=== PATIENT | female | born 1960 | race Caucasian/White ===

== ENCOUNTER → 2016-12-22 | Day surgery (SDC) | payer BC ==
[~2016-12-22] VITALS: Ht 157.5 cm; Wt 120.0 kg
[~2016-12-22] MED LIST: CEPH500C PO; DOXY100C41 PO; SODIUM CHLORIDE 0.9% 1000ML 500 ML IV SCH
[2016-12-22 13:03] VITALS: BP 144/93; PULSE 71; TEMP 36.7; O2SAT 96; Ht 157.5 cm; Wt 120.0 kg
[2016-12-22 14:05] VITALS: BP 147/92; PULSE 65; TEMP 36.7; O2SAT 97
== END | disposition home or self-care (01) ==
LOC: C.MTU 12:41
PROVIDERS: ATTEND Family Medicine
DX: E86.0 Dehydration (principal); K52.9 Noninfective gastroenteritis and colitis, unspecified

== ENCOUNTER 2017-02-13 11:27 | Emergency (ER) | payer BC ==
[~2017-02-13] VITALS: Ht 157.5 cm; Wt 97.8 kg
[2017-02-13 11:32] VITALS: Ht 157.5 cm; Wt 97.8 kg
[2017-02-13] MEDS ORDERED: DOXY100C41 PO (11:45)
[2017-02-13] MEDS ORDERED: CEFTRIAXONE SOD INJ 1 GM ADDVIAL IV STA (11:58)
[2017-02-13 12:30] LABS: BASO % 0.4 %; BASO ABS # 0.02 K/uL (0-0.2); COMPLETE YES; EOS % 2.1 %; HEMATOCRIT 41.6 % (37-47); IG% 0.2 %; LYMPH % 45.4 %; LYMPH ABS # 2.39 K/uL (1.2-3.4); MEAN CELL VOLUME 95.9 fL (80-100); MEAN CORPUSCULAR HEMOGLOBIN 30.6 pg (25-34); MEAN PLATELET VOLUME 10.9 fL (7.4-10.4); MONO % 8.7 %; NEUT % 43.2 %; PLATELET COUNT 231 K/uL (130-400); RED BLOOD COUNT 4.34 M/uL (4.2-5.4); WHITE BLOOD COUNT 5.26 K/uL (4.8-10.8)
[2017-02-13 12:47] LABS: BUN/CREATININE RATIO 16.4 (10-20); CALCIUM 8.7 mg/dl (8.5-10.1); CREATININE 0.58 mg/dl (0.60-1.20)
--- NOTE | 2017-02-13 13:56 | DIAGNOSTIC IMAGING REPORT ---
ULTRASOUND LEFT VENOUS DOPP LOWER EXT UNILAT CLINICAL HISTORY: Left leg swelling COMPARISON STUDY: No previous studies for comparison. FINDINGS: Real-time and color flow Doppler imaging were performed. Flow was seen within the femoral, popliteal and calf veins with no intraluminal thrombus demonstrated. The saphenous vein is patent. IMPRESSION: No evidence of left lower extremity DVT. Electronically signed by: Donny Mendez M.D. 02/13/2017 1:54 PM Dictated Date/Time: 02/13/2017 1:53 PM
--- NOTE | 2017-02-13 14:02 | DIAGNOSTIC IMAGING REPORT ---
LEFT FOOT MIN 3 VIEWS ROUTINE CLINICAL HISTORY: left toe infection COMPARISON: None. DISCUSSION: Mild generalized degenerative change. Soft tissue edema. No acute bony abnormality. Cortical margins are intact. Small heel spur. Mild soft tissue edema IMPRESSION: Mild soft tissue edema. Mild degenerative change. No acute bony abnormality. Heel spur. Electronically signed by: Tim Cespedes M.D. 02/13/2017 2:00 PM Dictated Date/Time: 02/13/2017 1:59 PM
[2017-02-13] MEDS ORDERED: CEPH500C PO (14:21)
--- NOTE | 2017-02-13 14:22 | EMERGENCY ROOM VISIT NOTE ---
History Report prepared by Rachelle: Pascual Guevara Under the Supervision of: Dr. Levy Sarmiento D.O. First contact with patient: 11:57 Chief Complaint: INFECTION Stated Complaint: INFECTION IN TOE AND LEG Nursing Triage Summary: Triage note: Pt reports she has an infection to her left second toe and left lower leg "i saw my dr yesterday and they started me on an antibiotic and it's getting worse." History of Present Illness The patient is a 56 year old female who presents to the Emergency Room with complaints of an infection in her left second toe that started 1 week ago. She rates her pain an 8/10 in severity. At this time, the patient was in [place] at [facility]. She got a blister on her foot at this time that popped as she was walking. She then began to experience toe pain that spread into her leg. She saw her PCP yesterday and they outlined the infection and gave her an antibiotic. They told her that if the infection moves out of the outline, she should go to the emergency room. She denies any leg trauma. She denies any past medical problems. Source of History: patient Onset: 1 week ago Position: toe(s) (second left) Symptom Intensity: 8/10 Quality: ache Timing: worsening Note: She has leg pain and redness. She denies any other abnormal symptoms. Review of Systems See HPI for pertinent positives & negatives. A total of 10 systems reviewed and were otherwise negative. Past Medical & Surgical Medical Problems: (1) No Known Active Medical Problems Family History Patient reports no known family medical history. Social History Smoking Status: Never Smoker Smokeless Tobacco Use: No Drug Use: none Occupation Status: employed Current/Historical Medications Scheduled Cephalexin Monohydrate (Keflex), 500 MG PO QID Doxycycline (Monohydrate) (Monodox), 1 CAP PO BID Allergies Coded Allergies: Penicillins (Verified Allergy, Unknown, 02/13/17) Sulfa Drugs (Verified Allergy, Unknown, 02/13/17) Sulfamethoxazole (Verified Allergy, Unknown, 02/13/17) Aspirin (Unverified Adverse Reaction, Unknown, GI UPSET, 02/13/17) Uncoded Allergies: POLLEN--SNEEZING; TAKES CLARITAN IN THE SPRING (Allergy, Unknown, 11/10/02) Physical Exam Vital Signs Date Time Temp Pulse Resp B/P Pulse Ox O2 Delivery O2 Flow Rate FiO2 5/19/17 14:39 36.8 55 18 155/100 98 02/13/17 13:19 63 18 155/106 95 02/13/17 11:32 36.8 67 18 208/131 98 Room Air Physical Exam CONSTITUTIONAL/VITAL SIGNS: Reviewed / noted above. GENERAL: Non-toxic in appearance. INTEGUMENTARY: Warm, dry, and [place]. HEAD: Normocephalic. EYES: without scleral icterus or trauma. ENT/OROPHARYNX: clear and moist. LYMPHADENOPATHY/NECK: Is supple without lymphadenopathy or meningismus. RESPIRATORY: Lungs clear and equal. CARDIOVASCULAR: Regular rate and rhythm. GI/ABDOMEN: Soft and nontender. No organomegaly or pulsatile mass. No rebound or guarding. Normal bowel sounds. EXTREMITIES: Warm and well perfused. Mild lower extremity edema of the left leg. Mild erythema to the anterior lower tibial region and posterior lower calf region on the left leg. Left second toe has skin that is cracked on the plantar surface at the MTP joint region. BACK: No CVA tenderness. NEUROLOGICAL: Intact without focal deficits. PSYCHIATRIC: normal affect. MUSCULOSKELETAL: Normally developed with good muscle tone. Medical Decision & Procedures ER Provider Diagnostic Interpretation: Radiology results as stated below per my review and radiologist interpretation: LEFT FOOT MIN 3 VIEWS ROUTINE CLINICAL HISTORY: left toe infection COMPARISON: None. DISCUSSION: Mild generalized degenerative change. Soft tissue edema. No acute bony abnormality. Cortical margins are intact. Small heel spur. Mild soft tissue edema IMPRESSION: Mild soft tissue edema. Mild degenerative change. No acute bony abnormality. Heel spur. Electronically signed by: Tim Cespedes M.D. 02/13/2017 2:00 PM Dictated Date/Time: 02/13/2017 1:59 PM ULTRASOUND LEFT VENOUS DOPP LOWER EXT UNILAT CLINICAL HISTORY: Left leg swelling COMPARISON STUDY: No previous studies for comparison. FINDINGS: Real-time and color flow Doppler imaging were performed. Flow was seen within the femoral, popliteal and calf veins with no intraluminal thrombus demonstrated. The saphenous vein is patent. IMPRESSION: No evidence of left lower extremity DVT. Electronically signed by: Donny Mendez M.D. 02/13/2017 1:54 PM Dictated Date/Time: 02/13/2017 1:53 PM Laboratory Results 02/13/17 12:12 Red Blood Count 4.34, Mean Corpuscular Volume 95.9, Mean Corpuscular Hemoglobin 30.6, Mean Corpuscular Hemoglobin Concent 32.0, Mean Platelet Volume 10.9, Neutrophils (%) (Auto) 43.2, Lymphocytes (%) (Auto) 45.4, Monocytes (%) (Auto) 8.7, Eosinophils (%) (Auto) 2.1, Basophils (%) (Auto) 0.4, Neutrophils # (Auto) 2.27, Lymphocytes # (Auto) 2.39, Monocytes # (Auto) 0.46, Eosinophils # (Auto) 0.11, Basophils # (Auto) 0.02 02/13/17 12:12 Test 02/13/17 12:12 White Blood Count 5.26 K/uL (4.8-10.8) Red Blood Count 4.34 M/uL (4.2-5.4) Hemoglobin 13.3 g/dL (12.0-16.0) Hematocrit 41.6 % (37-47) Mean Corpuscular Volume 95.9 fL (80-100) Mean Corpuscular Hemoglobin 30.6 pg (25-34) Mean Corpuscular Hemoglobin Concent 32.0 g/dl (32-36) Platelet Count 231 K/uL (130-400) Mean Platelet Volume 10.9 fL (7.4-10.4) Neutrophils (%) (Auto) 43.2 % Lymphocytes (%) (Auto) 45.4 % Monocytes (%) (Auto) 8.7 % Eosinophils (%) (Auto) 2.1 % Basophils (%) (Auto) 0.4 % Neutrophils # (Auto) 2.27 K/uL (1.4-6.5) Lymphocytes # (Auto) 2.39 K/uL (1.2-3.4) Monocytes # (Auto) 0.46 K/uL (0.11-0.59) Eosinophils # (Auto) 0.11 K/uL (0-0.5) Basophils # (Auto) 0.02 K/uL (0-0.2) RDW Standard Deviation 48.5 fL (36.4-46.3) RDW Coefficient of Variation 13.8 % (11.5-14.5) Immature Granulocyte % (Auto) 0.2 % Immature Granulocyte # (Auto) 0.01 K/uL (0.00-0.02) Anion Gap 5.0 mmol/L (3-11) Est Creatinine Clear Calc Drug Dose 118.3 ml/min Estimated GFR () 119.4 Estimated GFR (Non- 103.0 BUN/Creatinine Ratio 16.4 (10-20) Calcium Level 8.7 mg/dl (8.5-10.1) Laboratory results as stated above per my review. Medications Administered Medications (Trade) Dose Ordered Sig/Jennifer Route Start Time Stop Time Status Last Admin Dose Admin Ceftriaxone Sodium (Rocephin Inj) 1 gm NOW STAT IV 02/13/17 11:58 02/13/17 11:59 DC 02/13/17 12:42 1 GM ED Course 1157: Previous medical records were reviewed. The patient was evaluated in room C9. A complete history and physical examination was performed. 1158: Ordered Rocephin Inj 1 mg IV 1424: On reevaluation, the patient is resting. I discussed the results and findings with the patient. She verbalized agreement of the treatment plan. She was discharged home. Medical Decision Differential diagnosis: Etiologies such as cellulitis, abscess, MRSA infection, DVT, necrotizing fasciitis, dermatitis, drug eruption, as well as others were entertained. This is a 56-year-old female who presents to the ED with a chief complaint of a left lower extremities cellulitis. The patient developed a crack in the plantar aspect of her second left toe while she was at [employer] a week ago. The patient states that she has since developed redness and swelling in the left lower extremity. She went to her PCP and was diagnosed with a cellulitis yesterday and started on doxycycline. The patient reports increasing redness since being started on antibiotic yesterday. She came in for evaluation. The patient on exam has some erythema in the anterior as well as posterior aspect of the right leg. This is mostly in the inferior aspect of the tibial region. This also extends somewhat into the posterior aspect of the lower calf. There is some mild swelling as well as tenderness on exam. There is no discharge from the wound. CBC is normal, PRP is normal. Left lower extremity ultrasound did not show DVT. An x-ray of the foot did not show osteomyelitis or significant skin infection. The patient was told the results. She was treated with IV Rocephin. She'll be discharged on Keflex in addition to the doxycycline. She is felt to be stable for discharge and outpatient follow-up. She will return if symptoms worsen significantly in the next 24-48 hours. Impression Primary Impression: Cellulitis of left lower leg Scribe Attestation The scribe's documentation has been prepared under my direction and personally reviewed by me in its entirety. I confirm that the note above accurately reflects all work, treatment, procedures, and medical decision making performed by me. Departure Information Dispostion Home / Self-Care Prescriptions Cephalexin Monohydrate (Keflex) 500 Mg Cap 500 MG PO QID, #28 CAP Prov: Levy Sarmiento D.O. 02/13/17 Referrals No Doctor, Assigned (PCP) Forms HOME CARE DOCUMENTATION FORM, IMPORTANT VISIT INFORMATION, WORK / SCHOOL INSTRUCTIONS Patient Instructions Cellulitis Dc, My [facility] Additional Instructions Cephalexin as prescribed. Continue doxycycline. Follow-up with your doctor for recheck in 1-2 days. Return to the emergency department and 24-48 hours if symptoms worsen.
[2017-02-13 14:39] VITALS: BP 155/100; PULSE 55; TEMP 36.8; O2SAT 98
== END 2017-02-13 14:39 | disposition home or self-care (01) ==
LOC: C.EDB 11:28 → C.EDC 14:39
DX: L03.116 Cellulitis of left lower limb (principal)

== ENCOUNTER 2017-07-06 11:04 | Emergency (ER) | payer BC ==
[~2017-07-06] VITALS: Ht 160 cm; Wt 122.5 kg
[~2017-07-06 11:04] MED LIST changes: -SODIUM CHLORIDE 0.9% 1000ML 500 ML IV SCH
[2017-07-06 11:06] VITALS: TEMP 37.1; Ht 160 cm; Wt 122.5 kg
--- NOTE | 2017-07-06 12:04 | EMERGENCY ROOM VISIT NOTE ---
History Report prepared by Rachelle: Eliel Mercer Under the Supervision of: Dr. Varinder Seymour M.D. First contact with patient: 11:35 Chief Complaint: CHEST PAIN Stated Complaint: PAIN LEFT SIDE UNDER RIB CAGE History of Present Illness The patient is a 57 year old white female with a past medical history of kidney stones on the right side, appendectomy, and cellulitis who presents to the ED with a cc of waxing and waning discomfort under her left rib beginning 0200 this morning. Positive nausea. Negative urinary symptoms, cough, fevers, chills , recent falls or abnormal movements. She is not having any difficulty with urination or bowel movements. Denies any history of blood clots, though she has a family history of blood clots. She denies any alcohol, tobacco, or drug use. Source of History: patient Onset: 0200 Position: other (left ribs) Quality: other (discomfort) Timing: waxes/wanes Associated Symptoms: + nausea, No fevers, No chills, No cough, No urinary symptoms Review of Systems See HPI for pertinent positives and negatives. A total of ten systems were reviewed and were otherwise negative. Past Medical & Surgical Medical Problems: (1) No Known Active Medical Problems Family History Patient reports no known family medical history. Social History Smoking Status: Former Smoker Drug Use: none Occupation Status: employed Current/Historical Medications No Active Prescriptions or Reported Meds Allergies Coded Allergies: Penicillins (Verified Allergy, Unknown, 02/13/17) Sulfa Drugs (Verified Allergy, Unknown, 07/06/17) Sulfamethoxazole (Verified Allergy, Unknown, 07/06/17) Aspirin (Unverified Adverse Reaction, Unknown, GI UPSET, 07/06/17) Physical Exam Vital Signs Date Time Temp Pulse Resp B/P (MAP) Pulse Ox O2 Delivery O2 Flow Rate FiO2 07/06/17 14:57 68 18 140/90 98 Room Air 07/06/17 14:06 71 07/06/17 12:32 70 20 170/103 95 Room Air 07/06/17 12:30 96 Room Air 07/06/17 12:30 96 Room Air 07/06/17 11:22 77 07/06/17 11:06 37.1 91 20 192/119 97 Room Air Physical Exam GENERAL: Awake, alert, well-appearing, NAD HENT: Normocephalic, atraumatic. EYES: Normal conjunctiva. Sclera non-icteric. NECK: Supple. No nuchal rigidity. FROM. RESPIRATORY: CTAB, no rhonchi, wheezing, crackles CARDIAC: RRR, no MRG ABDOMEN: Soft, NTND, BS+ MSK: No chest wall TTP, no LE edema. No CVA TTP NEURO: GCS 15, CN 2-12 intact, moves all 4s on command SKIN: No vesicles, blisters, rash noted on the left flank or chest. No erythema or calor. No jaundice noted. Medical Decision & Procedures ER Provider Diagnostic Interpretation: Radiology results as stated below per my review and radiologist interpretation: SINGLE VIEW CHEST CLINICAL HISTORY: Atypical chest pain. FINDINGS: An AP, portable, upright chest radiograph is compared to study dated 12/18/2010. The examination is degraded by portable technique, large body habitus, and apical lordotic positioning. The heart is top normal for projection. The mediastinal contour is within normal limits. The pulmonary vasculature is noncongested. The lungs and pleural spaces are clear. No pneumothorax is seen. The skeletal structures are osteopenic. Degenerative change is seen throughout the thoracic spine. IMPRESSION: No acute cardiopulmonary abnormality. Electronically signed by: Teodoro Klein M.D. 07/06/2017 12:24 PM Dictated Date/Time: 07/06/2017 12:24 PM Laboratory Results 07/06/17 11:25 Red Blood Count 4.38, Mean Corpuscular Volume 94.1, Mean Corpuscular Hemoglobin 31.1, Mean Corpuscular Hemoglobin Concent 33.0, Mean Platelet Volume 12.0, Neutrophils (%) (Auto) 59.4, Lymphocytes (%) (Auto) 30.1, Monocytes (%) (Auto) 8.0, Eosinophils (%) (Auto) 2.1, Basophils (%) (Auto) 0.3, Neutrophils # (Auto) 4.15, Lymphocytes # (Auto) 2.11, Monocytes # (Auto) 0.56, Eosinophils # (Auto) 0.15, Basophils # (Auto) 0.02 07/06/17 11:25 Test 07/06/17 11:25 07/06/17 13:57 White Blood Count 7.00 K/uL (4.8-10.8) Red Blood Count 4.38 M/uL (4.2-5.4) Hemoglobin 13.6 g/dL (12.0-16.0) Hematocrit 41.2 % (37-47) Mean Corpuscular Volume 94.1 fL (80-100) Mean Corpuscular Hemoglobin 31.1 pg (25-34) Mean Corpuscular Hemoglobin Concent 33.0 g/dl (32-36) Platelet Count 263 K/uL (130-400) Mean Platelet Volume 12.0 fL (7.4-10.4) Neutrophils (%) (Auto) 59.4 % Lymphocytes (%) (Auto) 30.1 % Monocytes (%) (Auto) 8.0 % Eosinophils (%) (Auto) 2.1 % Basophils (%) (Auto) 0.3 % Neutrophils # (Auto) 4.15 K/uL (1.4-6.5) Lymphocytes # (Auto) 2.11 K/uL (1.2-3.4) Monocytes # (Auto) 0.56 K/uL (0.11-0.59) Eosinophils # (Auto) 0.15 K/uL (0-0.5) Basophils # (Auto) 0.02 K/uL (0-0.2) RDW Standard Deviation 44.7 fL (36.4-46.3) RDW Coefficient of Variation 12.9 % (11.5-14.5) Immature Granulocyte % (Auto) 0.1 % Immature Granulocyte # (Auto) 0.01 K/uL (0.00-0.02) Prothrombin Time 10.8 SECONDS (9.0-12.0) Prothromb Time International Ratio 1.0 (0.9-1.1) Activated Partial Thromboplast Time 26.8 SECONDS (21.0-31.0) Partial Thromboplastin Ratio 1.0 Anion Gap 8.0 mmol/L (3-11) Est Creatinine Clear Calc Drug Dose 106.5 ml/min Estimated GFR () 104.2 Estimated GFR (Non- 89.9 BUN/Creatinine Ratio 12.9 (10-20) Calcium Level 8.7 mg/dl (8.5-10.1) Total Bilirubin 0.5 mg/dl (0.2-1) Direct Bilirubin < 0.1 mg/dl (0-0.2) Aspartate Amino Transf (AST/SGOT) 19 U/L (15-37) Alanine Aminotransferase (ALT/SGPT) 33 U/L (12-78) Alkaline Phosphatase 72 U/L (45-117) Troponin I < 0.015 ng/ml (0-0.045) Total Protein 7.5 gm/dl (6.4-8.2) Albumin 3.8 gm/dl (3.4-5.0) Lipase 166 U/L (73-393) Urine Color YELLOW Urine Appearance CLEAR (CLEAR) Urine pH 7.0 (4.5-7.5) Urine Specific [place] 1.015 (1.000-1.030) Urine Protein NEG (NEG) Urine Glucose (UA) NEG (NEG) Urine Ketones NEG (NEG) Urine Occult Blood NEG (NEG) Urine Nitrite NEG (NEG) Urine Bilirubin NEG (NEG) Urine Urobilinogen NEG (NEG) Urine Leukocyte Esterase SMALL (NEG) Urine WBC (Auto) 1-5 /hpf (0-5) Urine RBC (Auto) 0-4 /hpf (0-4) Urine Hyaline Casts (Auto) 0 /lpf (0-5) Urine Epithelial Cells (Auto) >30 /lpf (0-5) Urine Bacteria (Auto) NEG (NEG) Laboratory results reviewed by me Medications Administered Medications (Trade) Dose Ordered Sig/Jennifer Route Start Time Stop Time Status Last Admin Dose Admin Ondansetron HCl (Zofran Inj) 4 mg NOW STAT IV 07/06/17 12:09 07/06/17 12:11 DC 07/06/17 12:25 4 MG Sodium Chloride 1,000 ml @ 999 mls/hr Q1H1M STAT IV 07/06/17 12:09 07/06/17 13:09 DC 07/06/17 12:27 999 MLS/HR Ketorolac Tromethamine (Toradol Inj) 30 mg NOW STAT IV 07/06/17 12:09 07/06/17 12:11 DC 07/06/17 12:25 30 MG Acetaminophen (Tylenol Tab) 1,000 mg NOW STAT PO 07/06/17 12:09 07/06/17 12:11 DC 07/06/17 12:27 1,000 MG ECG Indication: chest pain Rate (beats per minute): 96 Rhythm: normal sinus Findings: other (Normal interval. No STS changes or TWI) ED Course 1135: The patient was evaluated in room C5. A complete history and physical exam was performed. 1401: I reevaluated the patient. Discussed results and discharge instructions: She verbalized understanding and agreement. The patient is ready for discharge. Medical Decision The patient is a 57 year old white female with a past medical history of kidney stones on the right side, appendectomy, and cellulitis who presents to the ED with a cc of waxing and waning discomfort under her left rib beginning 0200 this morning. Positive nausea. Negative urinary symptoms, cough, fevers, chills , recent falls or abnormal movements. She is not having any difficulty with urination or bowel movements. Denies any history of blood clots, though she has a family history of blood clots. She denies any alcohol, tobacco, or drug use. Triage Nursing notes reviewed. The patient's presentation and history were concerning for etiologies such as cardiac ischemia, aortic dissection, pulmonary embolism, pneumonia, pneumothorax , musculoskeletal, infections, pericarditis, myocarditis, esophageal rupture, gastrointestinal, as well as others were entertained. Patient was seen and evaluated at the bedside. Patient well-appearing all did complain of some subcostal rib pain on the left side. Patient did have history of prior kidney stones however this is only diagnosed on the right side. Patient did have blood work that was completed. White blood cell count normal. Patient's other blood counts fairly unremarkable. Patient had a fairly normal EKG and negative troponin. Less likely ACS. HEART score < 4 Patient chest x-ray clear less likely fracture or pneumonia. Patient did have a UA which didn't show any blood thus less likely kidney stone type pain. Patient was informed of all findings told to follow-up with her PCP if she has a mildly elevated blood pressure. Patient was given strict follow-up, discharge, and return precautions. Patient agreed with plan of care was safely discharged home. Medication Reconcilliation Current Medication List: was personally reviewed by me Blood Pressure Screening Patient's blood pressure: Elevated blood pressure Blood pressure disposition: Elevated BP felt to be situational Impression Primary Impression: Flank pain Scribe Attestation The scribe's documentation has been prepared under my direction and personally reviewed by me in its entirety. I confirm that the note above accurately reflects all work, treatment, procedures, and medical decision making performed by me. Departure Information Dispostion Home / Self-Care Prescriptions No Active Prescriptions or Reported Meds Referrals Consuelo Palacio M.D. (PCP) Patient Instructions ED Flank Pain Uncertain Cause, My [facility] Additional Instructions Please return to the emergency department if you have worsening or recurrent symptoms not amenable to at-home treatment. Please call for a follow-up appointment with her primary care physician. Please take your medications as prescribed. If you have other concerns and/or complaints please feel free to also call your primary care physician's office or return the ED for further evaluation, management, and treatment. You were found to have an elevated blood pressure today (>120 sytolic or >90 diastolic). Per medicare guidelines, you need to follow up with this blood pressure screening with your Primary Care Physician (PCP). For a new PCP call [phone]. You may take 600 mg Ibuprofen every 6 hours as needed for pain with food for no more than 2 consecutive days. You may take tylenol 1000mg every 6 hours as needed for pain. You may take motrin and tylenol separately or at the same time. You have been examined and treated today on an emergency basis only. This is not a substitute for, or an effort to provide, complete comprehensive medical care. It is impossible to recognize and treat all injuries or illnesses in a single emergency department visit. It is therefore important that you follow up closely with [facility]. Call as soon as possible for an appointment. Thank you for your time and consideration. I look forward to speaking with you again soon. Please don't hesitate to call us if you have any questions.
[2017-07-06] MEDS ORDERED: ONDANSETRON INJ 2 MG/ML 2 ML VIAL IV STA (12:09)
[2017-07-06] MEDS ORDERED: ACETAMINOPHEN 500 MG TAB PO STA (12:09)
[2017-07-06] MEDS ORDERED: KETOROLAC TROMETHAMINE 30 MG/ML VIAL IV STA (12:09)
[2017-07-06] MEDS ORDERED: SODIUM CHLORIDE 0.9% 1000ML 1,000 ML IV STA (12:09)
--- NOTE | 2017-07-06 12:26 | DIAGNOSTIC IMAGING REPORT ---
SINGLE VIEW CHEST CLINICAL HISTORY: Atypical chest pain. FINDINGS: An AP, portable, upright chest radiograph is compared to study dated 12/18/2010. The examination is degraded by portable technique, large body habitus, and apical lordotic positioning. The heart is top normal for projection. The mediastinal contour is within normal limits. The pulmonary vasculature is noncongested. The lungs and pleural spaces are clear. No pneumothorax is seen. The skeletal structures are osteopenic. Degenerative change is seen throughout the thoracic spine. IMPRESSION: No acute cardiopulmonary abnormality. Electronically signed by: Teoodro Klein M.D. 07/06/2017 12:24 PM Dictated Date/Time: 07/06/2017 12:24 PM
[2017-07-06 12:30] VITALS: O2SAT 96
[2017-07-06 12:42] LABS: BASO % 0.3 %; BASO ABS # 0.02 K/uL (0-0.2); COMPLETE YES; EOS % 2.1 %; HEMATOCRIT 41.2 % (37-47); IG% 0.1 %; LYMPH % 30.1 %; LYMPH ABS # 2.11 K/uL (1.2-3.4); MEAN CELL VOLUME 94.1 fL (80-100); MEAN CORPUSCULAR HEMOGLOBIN 31.1 pg (25-34); NEUT % 59.4 %; PLATELET COUNT 263 K/uL (130-400); RED BLOOD COUNT 4.38 M/uL (4.2-5.4)
[2017-07-06 12:49] LABS: PROTHROMBIN TIME (PATIENT) 10.8 SECONDS (9.0-12.0)
[2017-07-06 13:14] LABS: ALKALINE PHOSPHATASE 72 U/L (45-117); ALT/SGPT 33 U/L (12-78); AST/SGOT 19 U/L (15-37); BLOOD UREA NITROGEN 10 mg/dl (7-18); BUN/CREATININE RATIO 12.9 (10-20); CALCIUM 8.7 mg/dl (8.5-10.1); CARBON DIOXIDE 26 mmol/L (21-32); CHLORIDE 105 mmol/L (98-107); CREATININE 0.74 mg/dl (0.60-1.20); GLUCOSE 118 mg/dl (70-99); POTASSIUM 3.8 mmol/L (3.5-5.1); SODIUM 139 mmol/L (136-145)
[2017-07-06 14:03] LABS: URINE APPEARANCE CLEAR (CLEAR); URINE BILIRUBIN NEG (NEG); URINE COLOR YELLOW; URINE EPITHELIAL CELL AUTO >30 /lpf (0-5); URINE NITRITE NEG (NEG); URINE SPECIFIC GRAVITY 1.015 (1.000-1.030); UROBILINOGEN NEG (NEG); ZZUR CULT IF INDIC CLEAN CATCH NO
[2017-07-06 14:05] LABS: MANUAL MICROSCOPIC REQUIRED? NO; REVIEW REQ? NO
[2017-07-06 14:57] VITALS: BP 140/90; PULSE 68; O2SAT 98
== END 2017-07-06 15:23 | disposition home or self-care (01) ==
LOC: C.EDB 11:06 → C.EDC 15:23
DX: R10.30 Lower abdominal pain, unspecified (principal); Z87.442 Personal history of urinary calculi; Z87.891 Personal history of nicotine dependence

== ENCOUNTER → 2018-04-23 | Outpatient (CLI) | payer OTHER ==
--- NOTE | 2018-04-23 15:16 | DIAGNOSTIC IMAGING REPORT ---
R TOE(S) MIN 2 VIEWS HISTORY: 57 years-old Female M79.676 acute pain and swelling of the right second toe COMPARISON: None available TECHNIQUE: 3 views of the right second toe FINDINGS: There is an acute comminuted fracture of the distal phalangeal tuft second digit with additional subtle acute fracture involving the medial base of the second distal phalanx. Minimal distal displacement of the distal phalangeal tuft fracture measures up to 3 mm. Moderate soft tissue swelling. Mild degenerative changes about the interphalangeal and metatarsal phalangeal joints. IMPRESSION: Acute comminuted and mildly displaced second distal phalangeal tuft fracture with soft tissue swelling. The above report was generated using voice recognition software. It may contain grammatical, syntax or spelling errors. Electronically signed by: Jon Gayle M.D. 04/23/2018 3:15 PM Dictated Date/Time: 04/23/2018 3:13 PM
== END | disposition home or self-care (01) ==
LOC: C.RAD1850 14:53
DX: S92.531A Displaced fracture of distal phalanx of right lesser toe(s), initial encounter for closed fracture (principal); X58.XXXA Exposure to other specified factors, initial encounter

== ENCOUNTER 2022-05-28 16:34 | Inpatient (IN) ==
--- NOTE | 2022-05-28 17:04 | ED Triage Note ---
Date of Service May 28, 2022 History of Present Illness This patient was briefly evaluated while in triage. An abbreviated physical exam was performed. This patient is a 61-year-old Female that presents to ED today with abd pain. She is concerned about gallbladder. RUQ abd and epigastric abd pain noted. Cold sweats noted. This started thursday. Decreased appetite. Physical Exam GENERAL: 61 year old female. In no acute distress. SKIN: No lesions or rashes. HEART: Regular rate and rhythm. LUNGS: Clear to auscultation. ABDOMEN: Bowel sounds normoactive. No guarding or rigidity. No tenderness of palpation. NEURO: Alert and oriented. No deficits. MUSCULOSKELETAL: No deformities to inspection of the extremities. PSYCH: Patient is pleasant and answers all questions appropriately. Initial orders for labs and / or imaging were placed and patient was placed in the waiting area until a bed is available. Please see further documentation for the full ED course.
[2022-05-28] MEDS ORDERED: SODIUM CHLORIDE 0.9% 1000ML 1,000 ML IV ONE (17:21)
[2022-05-28] MEDS ORDERED: ONDANSETRON INJ 2 MG/ML 2 ML VIAL IV STA ×2 (17:21→19:23)
[2022-05-28] MEDS ORDERED: MoRPHine SULFATE 4 MG/ML 1 ML CARP\\VIAL IV STA (17:21)
--- NOTE | 2022-05-28 17:33 | Emergency Department Note ---
Impression & Plan Right upper quadrant abdominal pain, Hypertensive urgency, Hypomagnesemia ED Provider Note NAME: CARMEN ALMONTE AGE: 61 SEX: F : 1960 ARRIVES VIA: Walk-In INFORMANT: Patient, ED PROVIDER(S): Connor Hernández DO CHIEF COMPLAINT: Abdominal pain HPI: The patient is a 61-year-old female who presented to the emergency departm ent for an evaluation of abdominal pain. The patient describes right upper quadrant abdominal pain which began over the weekend. She started noticing pain that became worse over the last 24 hours. She is not been seen by her family doctor for these symptoms. She denies having any vomiting but does note nausea. She states the pain does also appear in her epigastric region and she notices shortness of breath when the pain is very bad. She has had no lower extremity swelling or pain. She denies having any black or bloody bowels. She states the pain is moderate to severe and worsens with ambulation as well as palpation over the right upper quadrant. The patient thinks that this could be her gallbladder. She had a similar episode previously but at that time did not have her gallbladder removed. ROS: See above HPI for pertinent positives & negatives. A total of 10 systems reviewed and were otherwise negative. PAST MEDICAL HISTORY: See Below PAST SURGICAL HISTORY: See Below FAMILY HISTORY: See Below SOCIAL HISTORY: See Below HOME MEDICATIONS: See Below ALLERGIES: See Below VITALS: See Below PHYSICAL EXAMINATION: GENERAL: The patient is awake and alert. She is very anxious appearing and appears to be uncomfortable. EYES: The conjunctivae are clear. The pupils are round and reactive. EARS, NOSE, MOUTH AND THROAT: The nose is without any evidence of any deformity. NECK: The neck is nontender and supple. RESPIRATORY: Normal respiratory effort is noted there is no evidence of wheezing rhonchi or rales CARDIOVASCULAR: Regular rate and rhythm noted there no murmurs rubs or gallops normal S1 normal S2. GASTROINTESTINAL: The abdomen is distended and diffusely tender. There is right upper quadrant tenderness to palpation but no guarding rigidity. MUSCULOSKELETAL/EXTREMITIES: There is no evidence of gross deformity full range of motion is noted in the hips and shoulders. SKIN: There is no obvious evidence of any rash. There are no petechiae, pallor or cyanosis noted. NEUROLOGIC: Patient is awake alert and oriented x3. Gait was steady. MEDICAL DECISION MAKING: The patient is a 61-year-old female who presented to the emergency department for an evaluation of right upper quadrant abdominal pain and right-sided chest pain. The patient thought she may have had a problem with her gallbladder. She was found to have a very elevated blood pressure in the emergency department. She was treated with pain medication in the emergency department. She was also treated with antihypertensive medication because of the degree of her hypertension. I discussed patient's laboratory and radiographic studies with her. Her radiographic studies do not appear to be completely consistent with cholecystitis or other pathologies were considered including pulmonary embolism and cardiac disease. Ultimately the patient was evaluated by general surgery. In conjunction with her physical exam and her radiographic studies it is possible this could be cholecystitis. She was also evaluated by the hospitalist group. She was felt to be a good candidate for inpatient management and further work-up. The patient was agreeable with this plan. Triage Nursing notes reviewed. Prior medical records reviewed Vital Signs: reviewed and remarkable for elevated blood pressure. Differential diagnosis: Etiologies such as appendicitis, diverticulitis, obstruction, inflammatory bowel disease, renal colic, PUD, biliary pathology, pancreatitis, mesenteric ischemia, aortic pathology, infections, genitourinary, UTI, perforated viscus, as well as others were entertained. ER treatment provided: See below Diagnostics interpreted by me: ECG: EKG was obtained in the emergency department. My interpretation is sinus bradycardia 58 bpm. There is no ectopy. There is no acute ST segment abnormal ities noted. This was compared to a tracing from July 06, 2017. No changes were noted Cardiac Monitoring: An order was placed for continuous cardiac monitoring. The monitor shows a rate of 56 bpm with sinus bradycardia. Laboratory studies: As stated above and show below. Imaging studies: See below Consultation(s): I discussed this case with Steven who is on-call for general surgery. I discussed this case with Dr. Rodríguez. Past Med/Surg History Social History Smoking Status: Former smoker Smoking End Date: 1998; Hx Alcohol Use: Yes Alcohol type: wine Hx Substance Use: No Preferred Language: Bhutanese Communication Ability: Effective [place] Winder Required: No Beliefs That Will Affect Care: None Current Living Situation: Spouse Other Information That Helps Us Care for You: No Feels Safe at Home: Yes Safety Concerns: Feels Safe At This Time Assistive Devices: Glasses Allergies Allergies Allergy/AdvReac Type Severity Reaction Status Date / Time Penicillins Allergy Unknown Verified 02/13/17 11:42 Sulfa (Sulfonamide Allergy Unknown Verified 07/06/17 13:11 Antibiotics) sulfamethoxazole Allergy Unknown Verified 07/06/17 13:11 aspirin AdvReac Unknown GI UPSET Unverified 07/06/17 13:11 Home Meds Home Medications Medication Instructions Recorded Confirmed No Known Home Medications 05/28/22 05/28/22 Results & Data (ED) Vital Signs Vital Signs - 24 hr 05/28/22 17:01 05/28/22 19:15 05/28/22 19:14 Temperature 36.6 C Temperature Source Temporal Artery Scan Pulse Rate 81 80 Pulse Rate [Apical] 62 Pulse Rate from SpO2 Sensor Respiratory Rate 16 16 16 Respiratory Effort / Characteristics Non-Labored Spontaneous Non-Labored Spontaneous Respiratory Depth Normal Normal Respiratory Pattern Regular Blood Pressure 229/123 H Blood Pressure [Right Arm] 239/133 H Blood Pressure Mean 158 Blood Pressure Mean [Right Arm] 168 Blood Pressure Position Sitting Pulse Oximetry 97 98 99 Oxygen Delivery Method Room Air Room Air Room Air Sepsis Recent Fever Within 48 Hours No Sepsis New/Unexplained Change in Mental Status No Sepsis Action Taken by Nursing No Action Required 05/28/22 20:08 05/28/22 20:30 05/28/22 21:25 Temperature Temperature Source Pulse Rate 66 Pulse Rate [Apical] 60 73 Pulse Rate from SpO2 Sensor 67 Respiratory Rate 20 16 18 Respiratory Effort / Characteristics Non-Labored Spontaneous Respiratory Depth Respiratory Pattern Blood Pressure 181/108 H Blood Pressure [Right Arm] 182/103 H 188/111 H Blood Pressure Mean 132 Blood Pressure Mean [Right Arm] 129 136 Blood Pressure Position Pulse Oximetry 94 97 97 Oxygen Delivery Method Room Air Room Air Room Air Sepsis Recent Fever Within 48 Hours Sepsis New/Unexplained Change in Mental Status Sepsis Action Taken by Nursing 05/28/22 21:47 Temperature Temperature Source Pulse Rate 59 L Pulse Rate [Apical] Pulse Rate from SpO2 Sensor 60 Respiratory Rate 18 Respiratory Effort / Characteristics Respiratory Depth Respiratory Pattern Blood Pressure 174/96 H Blood Pressure [Right Arm] Blood Pressure Mean 122 Blood Pressure Mean [Right Arm] Blood Pressure Position Pulse Oximetry 96 Oxygen Delivery Method Room Air Sepsis Recent Fever Within 48 Hours Sepsis New/Unexplained Change in Mental Status Sepsis Action Taken by [facility] Medications Current Medication List: was personally reviewed by me Laboratory Data Attestation: I reviewed the patient's lab results. Result diagrams: 05/28/22 17:21 05/29/22 06:56 Lab Results 05/28/22 05/28/22 05/28/22 Range/Units 17:21 17:21 20:35 WBC 7.33 (4.8-10.8) K/ul RBC 3.88 L (3.93-5.22) M/uL Hgb 11.9 L (12.0-16.0) g/dl Hct 37.6 (34.1-44.9) % MCV 96.9 (80.0-100.0) fL MCH 30.7 (25.0-34.0) pg MCHC 31.6 L (32.0-36.0) g/dL RDW Std Deviation 45.6 (36.4-46.3) fL RDW Coeff of Lana 12.9 (11.5-14.5) % Plt Count 246 (130-400) K/uL MPV 11.8 (9.4-12.3) fL Immature Gran % (Auto) 0.3 % Neut % (Auto) 59.8 % Lymph % (Auto) 28.2 % Boyd % (Auto) 8.3 % Eos % (Auto) 2.9 % Baso % (Auto) 0.5 % Neut # (Auto) 4.38 (1.4-6.5) K/uL Lymph # (Auto) 2.07 (1.2-3.4) K/uL Boyd # (Auto) 0.61 (0.24-0.82) K/uL Eos # (Auto) 0.21 (0-0.50) K/uL Baso # (Auto) 0.04 (0-0.2) K/uL Immature Gran # (Auto) 0.02 (0.00-0.02) K/uL Sodium 141 (136-145) mmol/L Potassium 3.4 L (3.5-5.1) mmol/L Chloride 107 (98-107) mmol/L Carbon Dioxide 28 (21-32) mmol/L Anion Gap 6 (3-11) BUN 12 (6-23) mg/dl Creatinine 0.67 (0.6-1.2) mg/dl Est Cr Clr Drug Dosing 112.9 ml/min Est GFR ( Amer) 110.0 ml/min Est GFR (Non-Af Amer) 94.9 ml/min BUN/Creatinine Ratio 17.9 (10-20) Glucose 79 (70-99(Fasting)) mg/dl Calcium 9.3 (8.5-10.1) mg/dl Magnesium 1.6 L (1.7-2.4) mg/dl Total Bilirubin 0.2 (0.2-1.0) mg/dl AST 14 (13-39) U/L ALT 20 (7-52) U/L Alkaline Phosphatase 64 (34-104) U/L Troponin I High Sens 10.7 (0-14) pg/ml Total Protein 6.9 (6.0-8.3) gm/dl Albumin 4.0 (3.4-5.0) gm/dl Globulin 2.9 (2.5-4.0) gm/dl Albumin/Globulin Ratio 1.4 (0.9-2) Lipase 49 (11-82) U/L SARS-CoV-2, RNA, NAAT NEGATIVE (NEGATIVE) Administered Medications Sodium Chloride (Nss 1000ml) 1,000 mls @ 164 mls/hr IV .Q6H6M CLAU Stop: 06/28/22 01:03 Last Admin: 05/29/22 07:45 Dose: 164 mls/hr Documented By: Infusion: 05/29/22 07:45 Dose: 164 mls/hr Documented By: Admin: 05/29/22 02:11 Dose: 164 mls/hr Documented By: [id number] Acetaminophen (Ofirmev) 1,000 mg in 100 mls @ 400 mls/hr IV Q8H PRN PRN Reason: Pain Stop: 06/01/22 09:03 Last Admin: 05/29/22 10:05 Dose: 400 mls/hr Documented By: ROEL Morphine Sulfate (Morphine Sulfate 2 Mg/Ml Carp) 2 mg IV Q3H PRN PRN Reason: Pain (1,2,3,4,5) & Pre PT Stop: 06/11/22 21:52 Last Admin: 05/29/22 02:18 Dose: 2 mg Documented By: QG Potassium Chloride (Potassium Chloride Crtab 20 Meq Tabcr) 40 meq PO QAM CLAU Stop: 06/28/22 08:59 Last Admin: 05/29/22 08:59 Dose: 40 meq Documented By: ROEL Discontinued Medications Hydromorphone HCl (Hydromorphone Inj 1 Mg/Ml Syringe) 1 mg IV NOW STA Stop: 05/28/22 19:16 Last Admin: 05/28/22 19:20 Dose: 1 mg Documented By: COLIN Sodium Chloride (Nss 1000ml) 1,000 mls @ 999 mls/hr IV .Q1H1M ONE Stop: 05/28/22 18:21 Last Infusion: 05/28/22 19:11 Dose: 0 mls/hr Documented By: Admin: 05/28/22 17:34 Dose: 999 mls/hr Documented By: SOPHIA Magnesium Sulfate/Dextrose (Magnesium Sulfate / D5w) 1 gm in 100 mls @ 100 mls/hr IV Q1H CLAU Stop: 05/28/22 21:40 Last Infusion: 05/28/22 21:47 Dose: 0 mls/hr Documented By: Admin: 05/28/22 20:53 Dose: 100 mls/hr Documented By: Infusion: 05/28/22 20:53 Dose: 100 mls/hr Documented By: Admin: 05/28/22 20:02 Dose: 100 mls/hr Documented By: COLIN Ceftriaxone Sodium (Rocephin) 2,000 mg in 70 mls @ 140 mls/hr IV NOW STA Stop: 05/28/22 22:29 Last Infusion: 05/28/22 23:30 Dose: 0 mls/hr Documented By: Admin: 05/28/22 22:56 Dose: 140 mls/hr Documented By: COLIN Famotidine (Pepcid 20mg Iv Push) 20 mg in 5 mls @ 2.5 mls/min IV NOW STA Stop: 05/28/22 22:29 Last Admin: 05/28/22 22:56 Dose: 2.5 mls/min Documented By: COLIN Ioversol (Optiray 300 500ml) 110 ml IV ONCE ONE Stop: 05/28/22 19:00 Last Admin: 05/28/22 18:59 Dose: 110 ml Documented By: IMER Labetalol HCl (Labetalol Hcl Iv 5 Mg/Ml 20ml) 10 mg IV NOW STA Stop: 05/28/22 19:36 Last Admin: 05/28/22 20:01 Dose: 10 mg Documented By: COLIN Co-signed By: LEWIS Morphine Sulfate (Morphine Sulfate 4 Mg/Ml 1 Ml Carp\Vial) 4 mg IV NOW STA Stop: 05/28/22 17:22 Last Admin: 05/28/22 17:34 Dose: Not Given Documented By: SOPHIA Ondansetron HCl (Ondansetron Inj 2 Mg/Ml 2 Ml Vial) 4 mg IV NOW STA Stop: 05/28/22 17:22 Last Admin: 05/28/22 17:34 Dose: 4 mg Documented By: SOPHIA Ondansetron HCl (Ondansetron Inj 2 Mg/Ml 2 Ml Vial) 4 mg IV NOW STA Stop: 05/28/22 19:24 Last Admin: 05/28/22 19:25 Dose: 4 mg Documented By: COLIN Imaging Data Radiologist's Impression: Gallbladder Ultrasound 05/28/22 17:04 US gallbladder CLINICAL HISTORY: Epigastric abdominal pain. COMPARISON STUDY: No previous studies for comparison. FINDINGS: This exam is compromised by suboptimal penetration. Hepatic echogenicity is increased. No hepatic lesions are identified. There is no biliary ductal dilatation. No gallstones are identified. No definite gallbladder wall thickening. Gallbladder is partially obscured. Pancreatic body is normal. Head and tail are partially obscured. There is no right hydronephrosis. IMPRESSION: 1. Hepatic steatosis. 2. Exam compromised by suboptimal penetration. Partially obscured gallbladder but no definite gallstones. No convincing evidence for acute cholecystitis. 3. No biliary ductal dilatation. ACT 112: Negative or not required by law. Electronically signed by: Nino Mcneil M.D. 05/28/2022 6:20 PM Chest X-Ray 05/28/22 17:05 XR chest 1V portable CLINICAL HISTORY: Epigastric abd pain COMPARISON STUDY: Chest radiograph and right rib series October 19, 2018. FINDINGS: Lung volumes are normal. Lungs are clear. There is no pneumothorax or pleural effusion. There is mild enlargement of the cardiac silhouette. Mediastinal contours are normal. There is no evidence for pulmonary edema. IMPRESSION: No acute cardiopulmonary findings. ACT 112: Negative or not required by law. Electronically signed by: Nino Mcneil M.D. 05/28/2022 6:55 PM Abdomen/Pelvis CT 05/28/22 18:32 CT OF THE ABDOMEN AND PELVIS WITH CONTRAST CLINICAL HISTORY: Right-sided abdominal pain. COMPARISON STUDY: Right upper quadrant ultrasound performed earlier today. TECHNIQUE: Following IV administration of 110 mL of Optiray, axial images of the abdomen and pelvis were obtained from the lung bases to the proximal femurs. Images were reviewed in the axial, sagittal, and coronal planes. IV contrast was administered without complication. Automated exposure control was utilized for the study. A dose lowering technique was utilized adhering to the principles of ALARA. CT DOSE: 2552.76 mGy.cm FINDINGS: No pneumatosis, free air or portal venous gas is present. Several subcentimeter hypodense hepatic lesions are too small to characterize but likely reflect cysts. The spleen, adrenal glands, kidneys and pancreas are unremarkable . There is no biliary or pancreatic ductal dilatation. There is no hydronephrosis. There may be trace stranding adjacent to the gallbladder. Gallbladder mucosal enhancement appears slightly increased. However, the gallbladder is not distended. Caliber and wall thickness of small and large bowel are normal. There is no evidence for a bowel obstruction. Mild sigmoid diverticulosis is noted without evidence for acute diverticulitis. There is no ascites or lymphadenopathy. No acute fracture or suspicious lesion within the visualized skeletal structures is present. Bladder is mildly distended. Susp ected 1.9 cm uterine fibroid. IMPRESSION: 1. No definite acute process within the abdomen or pelvis. 2. Possible subtle stranding adjacent to the gallbladder with mild mucosal enhancement. However, gallbladder not distended and no gallstones identified on ultrasound. Acute cholecystitis is considered unlikely. However, if persistent right upper quadrant pain, a hepatobiliary scan could be considered although evaluation may be difficult given the small size of the gallbladder. 3. No bowel obstruction. No bowel wall thickening. ACT 112: Negative or not required by law. Electronically signed by: Nino Mcneil M.D. 05/28/2022 7:47 PM Chest CTA 05/28/22 18:32 CT ANGIOGRAPHY OF THE CHEST, PULMONARY EMBOLUS PROTOCOL CLINICAL HISTORY: Right-sided chest pain. Right upper quadrant pain. Evaluate for pulmonary embolus. COMPARISON STUDY: Chest radiograph October 19, 2018 and May 28, 2022. TECHNIQUE: Following IV administration of 110 mL of Optiray, helical axial images of the chest were obtained utilizing the pulmonary embolus protocol. Maximal intensity projections and sagittal and coronal reformats were viewed on an independent 3D workstation. IV contrast was administered without complication. Automated exposure control was utilized for the study. A dose lowering technique was utilized adhering to the principles of ALARA. FINDINGS: No pulmonary emboli are identified. There is no thoracic aortic dissection. There is mild dilatation of the ascending aorta, measuring 4.2 cm at the level of the main pulmonary artery. Mild cardiomegaly is noted. There is no pericardial effusion. Mildly enlarged right paratracheal lymph node on axial image 234 of 268 measures 1.1 cm in short axis diameter. There is no consolidat ion to suggest pneumonia. Mild subpleural opacities favor atelectasis. No pneumothorax or pleural effusion is present. Abdomen and pelvis CT will be reported separately. IMPRESSION: 1. No pulmonary emboli identified. 2. No acute intrathoracic findings. 3. Mildly enlarged right paratracheal lymph node which is likely benign. A follow-up chest CT in 6 months to ensure stability is recommended. 4. Mild cardiomegaly. Mild dilatation of the ascending aorta, measuring 4.2 cm. No thoracic aortic dissection. ACT 112: Negative or not required by law. Electronically signed by: Nino Mcneil M.D. 05/28/2022 7:16 PM Discharge Plan Visit Data Chief Complaint: Rib Injury/Pain Stated Complaint: R SIDED RIB PAIN ED Provider: Connor Hernández Discharge Problem: Right upper quadrant abdominal pain, Hypertensive urgency, Hypomagnesemia Patient Disposition: Admitted As Inpatient Discharge Instructions Interventions: ED Discharge Assessment Last Done: 05/29/22 01:04
[2022-05-28 17:40] LABS: Basophils # (auto) 0.04 K/uL (0-0.2); Basophils % (auto) 0.5 %; Eosinophils # (auto) 0.21 K/uL (0-0.50); Eosinophils % (auto) 2.9 %; Hematocrit (blood only) 37.6 % (34.1-44.9); Hemoglobin 11.9 g/dl (12.0-16.0); Immature Granulocytes # (auto) 0.02 K/uL (0.00-0.02); Immature Granulocytes % (auto) 0.3 %; Lymphocytes # (auto) 2.07 K/uL (1.2-3.4); Lymphocytes % (auto) 28.2 %; Mean Corpuscular Hemoglobin 30.7 pg (25.0-34.0); Mean Corpuscular Hgb Conc 31.6 g/dL (32.0-36.0); Mean Corpuscular Volume 96.9 fL (80.0-100.0); Mean Platelet Volume 11.8 fL (9.4-12.3); Monocytes # (auto) 0.61 K/uL (0.24-0.82); Monocytes % (auto) 8.3 %; Neutrophils # (auto) 4.38 K/uL (1.4-6.5); Neutrophils % (auto) 59.8 %; Platelet Count 246 K/uL (130-400); RDW Coefficient of Variation 12.9 % (11.5-14.5); RDW Standard Deviation 45.6 fL (36.4-46.3); Red Blood Count 3.88 M/uL (3.93-5.22); White Blood Count 7.33 K/ul (4.8-10.8)
[2022-05-28 18:05] LABS: Albumin Globulin Ratio 1.4 (0.9-2); BUN Creatinine Ratio 17.9 (10-20); Bilirubin,Total 0.2 mg/dl (0.2-1.0); Calcium 9.3 mg/dl (8.5-10.1); Creatinine Clr Calc Pharmacy 112.9 ml/min; Est GFR (Non-African American) 94.9 ml/min; Globulin 2.9 gm/dl (2.5-4.0); Magnesium 1.6 mg/dl (1.7-2.4); Potassium 3.4 mmol/L (3.5-5.1); Total Protein 6.9 gm/dl (6.0-8.3)
[2022-05-28 18:07] LABS: Troponin I High Sensitivity 10.7 pg/ml (0-14)
--- NOTE | 2022-05-28 18:21 | Ultrasound Report ---
US gallbladder CLINICAL HISTORY: Epigastric abdominal pain. COMPARISON STUDY: No previous studies for comparison. FINDINGS: This exam is compromised by suboptimal penetration. Hepatic echogenicity is increased. No h epatic lesions are identified. There is no biliary ductal dilatation. No gallstones are identified. N o definite gallbladder wall thickening. Gallbladder is partially obscured. Pancreatic body is normal. Head and tail are partially obscured. There is no right hydronephrosis. IMPRESSION: 1. Hepatic steatosis. 2. Exam compromised by suboptimal penetration. Partially obscured gallbladder but no definite gallsto eulalio. No convincing evidence for acute cholecystitis. 3. No biliary ductal dilatation. ACT 112: Negative or not required by law. Electronically signed by: Nino Mcneil M.D. 05/28/2022 6:20 PM
--- NOTE | 2022-05-28 18:56 | XRay Report ---
XR chest 1V portable CLINICAL HISTORY: Epigastric abd pain COMPARISON STUDY: Chest radiograph and right rib series October 19, 2018. FINDINGS: Lung volumes are normal. Lungs are clear. There is no pneumothorax or pleural effusion. The re is mild enlargement of the cardiac silhouette. Mediastinal contours are normal. There is no eviden ce for pulmonary edema. IMPRESSION: No acute cardiopulmonary findings. ACT 112: Negative or not required by law. Electronically signed by: Nino Mcneil M.D. 05/28/2022 6:55 PM
[2022-05-28] MEDS ORDERED: OPTIRAY 300 500mL IV ONE (18:59)
[2022-05-28] MEDS ORDERED: HYDROmorphone INJ 1 MG/ML SYRINGE IV STA (19:15)
--- NOTE | 2022-05-28 19:19 | CT Scan Report ---
CT ANGIOGRAPHY OF THE CHEST, PULMONARY EMBOLUS PROTOCOL CLINICAL HISTORY: Right-sided chest pain. Right upper quadrant pain. Evaluate for pulmonary embolus. COMPARISON STUDY: Chest radiograph October 19, 2018 and May 28, 2022. TECHNIQUE: Following IV administration of 110 mL of Optiray, helical axial images of the chest were o btained utilizing the pulmonary embolus protocol. Maximal intensity projections and sagittal and cor onal reformats were viewed on an independent 3D workstation. IV contrast was administered without co mplication. Automated exposure control was utilized for the study. A dose lowering technique was ut ilized adhering to the principles of ALARA. FINDINGS: No pulmonary emboli are identified. There is no thoracic aortic dissection. There is mild dilatation of the ascending aorta, measuring 4.2 cm at the level of the main pulmonary artery. Mild c ardiomegaly is noted. There is no pericardial effusion. Mildly enlarged right paratracheal lymph node on axial image 234 of 268 measures 1.1 cm in short axis diameter. There is no consolidation to sugge st pneumonia. Mild subpleural opacities favor atelectasis. No pneumothorax or pleural effusion is pre sent. Abdomen and pelvis CT will be reported separately. IMPRESSION: 1. No pulmonary emboli identified. 2. No acute intrathoracic findings. 3. Mildly enlarged right paratracheal lymph node which is likely benign. A follow-up chest CT in 6 mo nths to ensure stability is recommended. 4. Mild cardiomegaly. Mild dilatation of the ascending aorta, measuring 4.2 cm. No thoracic aortic di ssection. ACT 112: Negative or not required by law. Electronically signed by: Nino Mcneil M.D. 05/28/2022 7:16 PM
[2022-05-28] MEDS ORDERED: LABETALOL HCL IV 5 MG/ML 20ML IV STA (19:35)
--- NOTE | 2022-05-28 19:50 | CT Scan Report ---
CT OF THE ABDOMEN AND PELVIS WITH CONTRAST CLINICAL HISTORY: Right-sided abdominal pain. COMPARISON STUDY: Right upper quadrant ultrasound performed earlier today. TECHNIQUE: Following IV administration of 110 mL of Optiray, axial images of the abdomen and pelvis w ere obtained from the lung bases to the proximal femurs. Images were reviewed in the axial, sagittal, and coronal planes. IV contrast was administered without complication. Automated exposure control w as utilized for the study. A dose lowering technique was utilized adhering to the principles of GUY Pelletier. CT DOSE: 2552.76 mGy.cm FINDINGS: No pneumatosis, free air or portal venous gas is present. Several subcentimeter hypodense h epatic lesions are too small to characterize but likely reflect cysts. The spleen, adrenal glands, ki dneys and pancreas are unremarkable. There is no biliary or pancreatic ductal dilatation. There is no hydronephrosis. There may be trace stranding adjacent to the gallbladder. Gallbladder mucosal enhanc ement appears slightly increased. However, the gallbladder is not distended. Caliber and wall thickne ss of small and large bowel are normal. There is no evidence for a bowel obstruction. Mild sigmoid di verticulosis is noted without evidence for acute diverticulitis. There is no ascites or lymphadenopat hy. No acute fracture or suspicious lesion within the visualized skeletal structures is present. Blad joey is mildly distended. Suspected 1.9 cm uterine fibroid. IMPRESSION: 1. No definite acute process within the abdomen or pelvis. 2. Possible subtle stranding adjacent to the gallbladder with mild mucosal enhancement. However, gall bladder not distended and no gallstones identified on ultrasound. Acute cholecystitis is considered u nlikely. However, if persistent right upper quadrant pain, a hepatobiliary scan could be considered a lthough evaluation may be difficult given the small size of the gallbladder. 3. No bowel obstruction. No bowel wall thickening. ACT 112: Negative or not required by law. Electronically signed by: Nino Mcneil M.D. 05/28/2022 7:47 PM
[2022-05-28] MEDS: MAGNESIUM SULFATE / D5W 1 GM/100 ML BAG IV SCH ×2 (20:02→20:53)
--- NOTE | 2022-05-28 20:48 | Surgery Consultation ---
Date of Consultation May 28, 2022 Assessment & Plan (1) Right upper quadrant abdominal pain: The etiology of patient's right upper quadrant pain has not been fully delineated at this time. I have discussed with the patient that this could reflect biliary pathology but has not been ascertained at this time. I did discuss with her that surgical intervention should not be entertained until we are certain that this is indeed biliary in nature. Therefore, I recommend proceeding as follows: Admit patient on the medical service Provide analgesics Provide antiemetics Hydrate with IV fluids Follow serial labs Obtain a HIDA scan to further evaluate the gallbladder as a potential source of her abdominal pain. If HIDA scan is positive recommendations about surgery will follow. It is also noteworthy mention that the patient denies any medical problems but does admit to new onset lower extremity edema as well as some substernal chest discomfort. She was also noted to be markedly hypertensive at time of presentation to the emergency department. These issues should be further evaluated in order to have the patient medically optimized should any surgical intervention be required. Additional plans as directed by the admitting service. Surgery will continue to follow. History of Present Illness Reason for Consultation: Abdominal pain, concern for cholecystitis History of Present Illness This is a 61-year-old female who presented to the emergency department this evening at [facility] secondary to right upper quadrant pain. The patient notes that she has had a right upper quadrant pain for "years" that usually comes and goes and last 3 to 4 days and self resolves. She specifically notes that this pain occurs randomly and is unrelated to meals or other aggravating factors. She also denies any postprandial pain in the past. She notes with her current episode she has now had abdominal pain in the right upper quadrant for approximately 5 days. 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 She noted that the pain came on suddenly got progressively worse. She denies any fevers or diarrhea and has been having regular bowel movements. She has been able to tolerate solid food since this began with her last meal being at approximate 11:00 AM today. She denies any vomiting but has felt nauseous. She notes that the pain sometimes comes in waves and is worse with certain movements. The patient denies any other medical problems and states she takes no medications. She does note however that she has had new onset lower extremity edema and she also admits to some substernal chest pressure that is nonradiating. She feels as though this is related to anxiety. When she does get this pain she does not exhibit diaphoresis. The patient does note with her day-to-day activities she does not get short of breath. As noted the patient denies any past medical history. Concerning her previous surgeries the patient says that she has undergone an appendectomy in the past. She does not note family history of premature coronary artery disease and is a non-smoker. Since arrival to the emergency department the patient has had labs and imaging which I independently reviewed. A chest x-ray showed no evidence of pneumonia. The patient also underwent a CT scan of the chest that showed no evidence of pulmonary emboli or acute intrathoracic findings. Patient was noted to have some mildly enlarged right paratracheal lymph nodes. A gallbladder ultrasound was performed. This exam was noted to be suboptimal but there were no definite gallstones or convincing evidence of cholecystitis noted on the study. A CT scan of the abdomen pelvis was performed that showed no definite acute process in the abdomen or pelvis. The gallbladder was noted to be nondistended and no definite gallstones were noted. There was some possible subtle stranding adjacent to the gallbladder but cholecystitis was felt to be unlikely. Labs include a CBC her white blood cell count hematocrit normal. Her hemoglobin was slightly low at 11.9. Platelet count was noted to be normal. Chemistry profile showed sodium, BUN, and creatinine were normal. Her potassium was slightly low at 3.4. There is no significant elevation of patient's bilirubin, transaminases, alkaline phosphatase, or lipase. Troponin was checked and was not elevated. An EKG showed sinus bradycardia without changes indicative of acute ischemia. Since arrival to the emergency department the patient has received analgesics in the form of 1 mg of Dilaudid and 4 mg of morphine. She has noted some improvement with these modalities and she was in no distress at the time of my interview. Allergies Allergy/AdvReac Type Severity Reaction Status Date / Time Penicillins Allergy Unknown Verified 02/13/17 11:42 Sulfa (Sulfonamide Allergy Unknown Verified 07/06/17 13:11 Antibiotics) sulfamethoxazole Allergy Unknown Verified 07/06/17 13:11 aspirin AdvReac Unknown GI UPSET Unverified 07/06/17 13:11 Patient History Social History Smoking Status: Never smoker Preferred Language: [place] Feels Safe at Home: Yes Review of Systems Constitutional: no fever and no chills Eyes: + corrective lenses; no eye pain Ear, Nose, Mouth, Throat: no ear pain Respiratory: no cough and no dyspnea Cardiovascular: as per Subjective / HPI and + chest pain Gastrointestinal: + abdominal pain and + nausea; no vomiting and no diarrhea/loose stools Genitourinary: no dysuria Musculoskeletal: no back pain Integumentary: no rash Neurologic: no localized weakness Physical Exam Constitutional: WD/WN, vitals as above Eyes: no conjunctival abnormality ENMT: Ears: no external ear abnormality Neck: trachea midline Respiratory: normal respiratory effort; no respiratory distress and no labored breathing Cardiovascular: Rate/Rhythm: regular rate and regular rhythm Gastrointestinal (Abdomen): Abdomen is rotund but soft. It is nondistended and nonrigid. Bowel sounds are present. There is no rebound tenderness or guarding. At the time of my interview the patient only had minimal right upper quadrant pain with very deep palpation in the right upper quadrant. (She had received analgesics prior to my arrival) Musculoskeletal: Bilateral lower extremity edema, 2+, noted Skin: no rashes Neurologic: moves all extremities Psychiatric: A+Ox3, euthymic affect Genitourinary: no CVA tenderness Results & Data ([facility]) Vital Signs (Past 12 Hours) Vital Signs Temp Pulse Pulse Resp BP BP Pulse Ox 05/28/22 20:30 66 16 181/108 H 97 05/28/22 20:08 60 20 182/103 H 94 05/28/22 19:14 62 16 239/133 H 99 05/28/22 19:15 80 16 98 05/28/22 17:01 36.6 C 81 16 229/123 H 97 O2 Del Method 05/28/22 20:30 Room Air 05/28/22 20:08 Room Air 05/28/22 19:14 Room Air 05/28/22 19:15 Room Air 05/28/22 17:01 Room Air PG Care Time/CCT Total # of Minutes Spent Total Time Spent with Patient: Total time spent is greater than 50% in coordination of care (as documented) at patient's floor/unit and/or counseling patient: Coding Level of Care Code 26336 Inpt Consult Level 5 Diagnoses Right upper quadrant abdominal pain R10.11
[2022-05-28] MEDS ORDERED: cefTRIAXone SODIUM 2,000 MG/70 ML BAG IV STA (22:00)
[2022-05-28] MEDS ORDERED: FAMOTIDINE 20MG IV PUSH 20 MG/5 ML SYR IV STA (22:28)
--- NOTE | 2022-05-28 22:34 | History & Physical Report ---
Date of Service May 28, 2022 Assessment & Plan (1) Right upper quadrant abdominal pain: Plan: 61 year old woman who presented with symptoms consistent with biliary colic now admitted prior to diagnostic HIDA scan. RUQ tenderness -symptoms consistent with biliary colic. Awaiting HIDA scan. Ddx includes, gastritis, duodenitis, referred GERD pain/irritation, choledocholithiasis, or intracardiac pathology. * Supportive management: NPO, IV ceftriaxone, mIVF, IV famotidine x1. Pain control with morphine q3h as needed. * Await HIDA scan * AM CMP, Mg Hypertension -given pt's elevated pressures due to severe abdominal pain. * Pain control with morphine as above Electrolytes * Replete K to 4. * Replete Mg to 2 * Trend AM labs Code: Full code Dispo: Med-Surg with telemetry FEN/GI: NPO. IV NS @ maintenance rate DVT Prophylaxis: SCDs, ino stockings PT/OT: Consults: General Surgery Case management: Routine d/c planning (2) Hypertension: (3) Hypokalemia: History of Present Illness Primary Care Provider: NO PCP Sarah is a 61 year old woman who presented to the ED with severe colicky RUQ pain x5 days. She is concerned that her gallbladder may be involved. At symptom onset, she was able to continue working through each episode, which lasted 2 minutes at a time. She reports the pain never fully subsided between episodes from onset to ER presentation (constant dull knotty ache). Her symptoms continued to progressively worsen until last night, when she had multiple episodes of 10/10 pain in the RUQ that repeatedly brought her to her knees. She also broke out in cold sweats, which had never happened before. She has had similarly knotty, right-sided subcostal pain before but this was the worst it had ever been. Like the initial episodes, each one lasted about 2 minutes at a time, with radiation to the back. ROS + nausea, and SOB due to abdominal pain. She denies fever, dizziness, vomiting, or change in bowel habits. ED course was notable for BP of 229/123, sinus tachycardia (100s) on EKG, nonspecific gallbladder findings on ultrasound/CT, and mild guarding without rebound or rigidity on exam. She received Zofran, labetalol, IV Dilaudid, and Mg repletion. General surgery was consulted for evaluation of acute abdomen. They recommended admission overnight for HIDA scan in the morning for diagnostic clarity. Her primary [facility]. She has no chronic medical conditions and has no prescribed medications. She reports that she undergoes yearly screenings for hypertension, high cholesterol and hyperglycemia. She is a never smoker. She has a remote surgical history of appendectomy. Otherwise, she has no abdominal surgeries. Allergies Allergy/AdvReac Type Severity Reaction Status Date / Time Penicillins Allergy Unknown Verified 02/13/17 11:42 Sulfa (Sulfonamide Allergy Unknown Verified 07/06/17 13:11 Antibiotics) sulfamethoxazole Allergy Unknown Verified 07/06/17 13:11 aspirin AdvReac Unknown GI UPSET Unverified 07/06/17 13:11 Home Medications Medication Instructions Recorded Confirmed Type No Known Home Medications 05/28/22 05/28/22 History Past Med/Surg History Social History Smoking Status: Former smoker Smoking End Date: 1998; Hx Alcohol Use: Yes Alcohol type: wine Hx Substance Use: No Preferred Language: Indian Communication Ability: Effective Contact Center Agent Required: No Beliefs That Will Affect Care: None Current Living Situation: Spouse Other Information That Helps Us Care for You: No Feels Safe at Home: Yes Safety Concerns: Feels Safe At This Time Assistive Devices: None Review of Systems Review of Systems: All systems reviewed & are unremarkable except as noted in HPI & below Physical Exam Physical Exam: General: Well-appearing, alert, interactive, and in moderate (intermittently severe) distress. HEENT: Normocephalic, atraumatic. EOM intact. Good conjugate gaze. Nares patent. Moist mucosal membranes. Neck: Supple. No lymphadenopathy. Normal ROM. CV: Regular rate and rhythm. Normal S1 and S2. No murmurs gallops or rubs. Respiratory: Normal respiratory effort. Lungs clear to auscultation bilaterally. No crackles, rhonchi, or wheezes. Abdomen: Soft, distended abdomen. No bruits heard on auscultation. Exquisite RUQ tenderness to palpation. Lindquist's sign positive. Nontender in all other quadrants. Mild guarding but no rebound or rigidity. Extremities: Capillary refill <2 sec. 2+ dp equal bilaterally. 1+ bilateral pedal edema. Neuro: Alert and oriented x3. Skin: Clean, dry, and intact. No rashes, bruises, or erythema. Results & Data Results & Data ([facility]) Vital Signs (Past 12 Hours) Vital Signs Temp Pulse Pulse Resp BP BP Pulse Ox 05/28/22 21:25 73 18 188/111 H 97 05/28/22 20:30 66 16 181/108 H 97 05/28/22 20:08 60 20 182/103 H 94 05/28/22 19:14 62 16 239/133 H 99 05/28/22 19:15 80 16 98 05/28/22 17:01 36.6 C 81 16 229/123 H 97 O2 Del Method 05/28/22 21:25 Room Air 05/28/22 20:30 Room Air 05/28/22 20:08 Room Air 05/28/22 19:14 Room Air 05/28/22 19:15 Room Air 05/28/22 17:01 Room Air Code Status & VTE Plan VTE Prophylaxis Plan VTE Prophylaxis will be ordered: Yes Supervising Physician Co-Signing Physician Notes Attending addendum: I have physically seen this patient, have supervised the medical residents activities, and agree with the H&P unless as otherwise noted. Assessment and Plan: Right upper quadrant abdominal pain- Symptoms consistent with gallbladder disease CT scan abdomen pelvis negative Gallbladder ultrasound negative other than hepatic steatosis Order HIDA scan Ceftriaxone 2 g IV daily Zofran 4 mg IV every 6 hours as needed Famotidine 20 mg IV every 12 hours Acetaminophen 1 g IV every 8 hours as needed for mild pain or fever Morphine sulfate 2 mg IV every 3 hours as needed severe pain General surgery consult Remaining orders and notations as noted Resident Activity Tracking Resident Involvement: Resident Care Provided Care Provided: Adult [facility]
[2022-05-29] MEDS ORDERED: POLYETHYLENE (MIRALAX) 17 GM PACK PO PRN (01:04)
[2022-05-29] MEDS: SODIUM CHLORIDE 0.9% 1000ML 1,000 ML IV SCH ×4 (02:11→23:08)
[2022-05-29] MEDS: MoRPHine SULFATE 2 MG/ML CARP IV PRN ×2 (02:18→22:09)
[2022-05-29 07:44] LABS: Albumin Globulin Ratio 1.6 (0.9-2); Albumin Level 3.6 gm/dl (3.4-5.0); BUN Creatinine Ratio 16.7 (10-20); Bilirubin,Total 0.3 mg/dl (0.2-1.0); Calcium 8.2 mg/dl (8.5-10.1); Est GFR (African American) 110.5 ml/min; Est GFR (Non-African American) 95.3 ml/min; Globulin 2.3 gm/dl (2.5-4.0); Potassium 3.6 mmol/L (3.5-5.1); Total Protein 5.9 gm/dl (6.0-8.3)
[2022-05-29] MEDS: POTASSIUM CHLORIDE CRTAB 20 MEQ TABCR PO SCH (08:59)
[2022-05-29] MEDS ORDERED: ACETAMINOPHEN 1,000 MG/100 ML VIAL IV PRN (09:04)
--- NOTE | 2022-05-29 12:35 | Surgery Progress Note ---
Date of Service May 29, 2022 Assessment & Plan (1) Right upper quadrant abdominal pain: Plan: 61-year-old female admitted with hypertensive urgency and right upper quadrant abdominal pain. Low suspicion for biliary etiology, will await HIDA scan results. HIDA today Dr. Chaney will be following Could perform cholecystectomy early next week (2) Hypertensive urgency: Admission and Anticipated Discharge Date Admission Date: May 28, 2022 Subjective 61-year-old female admitted with hypertensive urgency and right upper quadrant pain. Her pain is improved following pain medications. This pain is not postprandial, it occurs intermittently, and appears to be more positional. No associated symptoms. Prior open appendectomy. Physical Exam Constitutional: WD/WN, vitals as above + morbidly obese Gastrointestinal (Abdomen): normal bowel sounds, soft, nontender, no hepatosplenomegaly Results & Data ([facility]) Vital Signs (Past 12 Hours) Vital Signs Temp Pulse Pulse Resp BP BP Pulse Ox 05/29/22 11:22 36.8 C 54 L 19 153/89 H 97 05/29/22 08:22 36.8 C 56 L 18 146/84 H 97 05/29/22 07:05 53 L 05/29/22 02:17 55 L 05/29/22 03:05 36.6 C 97 H 18 147/94 H 99 05/29/22 01:30 58 L 15 95 05/29/22 01:00 60 19 149/100 H 94 O2 Del Method 05/29/22 11:22 Room Air 05/29/22 08:22 Room Air 05/29/22 07:05 05/29/22 02:17 05/29/22 03:05 Room Air 05/29/22 01:30 Room Air 05/29/22 01:00 Room Air Laboratory Results Laboratory Results - last 24 hr 05/28/22 05/28/22 05/28/22 17:21 17:21 20:35 WBC 7.33 RBC 3.88 L Hgb 11.9 L Hct 37.6 MCV 96.9 MCH 30.7 MCHC 31.6 L RDW Std Deviation 45.6 RDW Coeff of Lana 12.9 Plt Count 246 MPV 11.8 Immature Gran % (Auto) 0.3 Neut % (Auto) 59.8 Lymph % (Auto) 28.2 [place] % (Auto) 8.3 Eos % (Auto) 2.9 Baso % (Auto) 0.5 Neut # (Auto) 4.38 Lymph # (Auto) 2.07 [place] # (Auto) 0.61 Eos # (Auto) 0.21 Baso # (Auto) 0.04 Immature Gran # (Auto) 0.02 Sodium 141 Potassium 3.4 L Chloride 107 Carbon Dioxide 28 Anion Gap 6 BUN 12 Creatinine 0.67 Est Cr Clr Drug Dosing 112.9 Est GFR ( Amer) 110.0 Est GFR (Non-Af Amer) 94.9 BUN/Creatinine Ratio 17.9 Glucose 79 Calcium 9.3 Magnesium 1.6 L Total Bilirubin 0.2 AST 14 ALT 20 Alkaline Phosphatase 64 Troponin I High Sens 10.7 Total Protein 6.9 Albumin 4.0 Globulin 2.9 Albumin/Globulin Ratio 1.4 Lipase 49 SARS-CoV-2, RNA, NAAT NEGATIVE 05/29/22 06:56 WBC RBC Hgb Hct MCV MCH MCHC RDW Std Deviation RDW Coeff of Lana Plt Count MPV Immature Gran % (Auto) Neut % (Auto) Lymph % (Auto) [place] % (Auto) Eos % (Auto) Baso % (Auto) Neut # (Auto) Lymph # (Auto) [place] # (Auto) Eos # (Auto) Baso # (Auto) Immature Gran # (Auto) Sodium 140 Potassium 3.6 Chloride 107 Carbon Dioxide 28 Anion Gap 5 BUN 11 Creatinine 0.66 Est Cr Clr Drug Dosing 115.0 Est GFR ( Amer) 110.5 Est GFR (Non-Af Amer) 95.3 BUN/Creatinine Ratio 16.7 Glucose 107 H Calcium 8.2 L Magnesium Total Bilirubin 0.3 AST 12 L ALT 17 Alkaline Phosphatase 46 Troponin I High Sens Total Protein 5.9 L Albumin 3.6 Globulin 2.3 L Albumin/Globulin Ratio 1.6 Lipase SARS-CoV-2, RNA, NAAT Diagnostic Findings US gallbladder CLINICAL HISTORY: Epigastric abdominal pain. COMPARISON STUDY: No previous studies for comparison. FINDINGS: This exam is compromised by suboptimal penetration. Hepatic echogenicity is increased. No hepatic lesions are identified. There is no biliary ductal dilatation. No gallstones are identified. No definite gallbladder wall thickening. Gallbladder is partially obscured. Pancreatic body is normal. Head and tail are partially obscured. There is no right hydronephrosis. IMPRESSION: 1. Hepatic steatosis. 2. Exam compromised by suboptimal penetration. Partially obscured gallbladder but no definite gallstones. No convincing evidence for acute cholecystitis. 3. No biliary ductal dilatation. CT OF THE ABDOMEN AND PELVIS WITH CONTRAST CLINICAL HISTORY: Right-sided abdominal pain. COMPARISON STUDY: Right upper quadrant ultrasound performed earlier today. TECHNIQUE: Following IV administration of 110 mL of Optiray, axial images of the abdomen and pelvis were obtained from the lung bases to the proximal femurs. Images were reviewed in the axial, sagittal, and coronal planes. IV contrast was administered without complication. Automated exposure control was utilized for the study. A dose lowering technique was utilized adhering to the principles of ALARA. CT DOSE: 2552.76 mGy.cm FINDINGS: No pneumatosis, free air or portal venous gas is present. Several subcentimeter hypodense hepatic lesions are too small to characterize but likely reflect cysts. The spleen, adrenal glands, kidneys and pancreas are unremarkable. There is no biliary or pancreatic ductal dilatation. There is no hydronephrosis. There may be trace stranding adjacent to the gallbladder. Gallbladder mucosal enhancement appears slightly increased. However, the gallbladder is not distended. Caliber and wall thickness of small and large bowel are normal. There is no evidence for a bowel obstruction. Mild sigmoid diverticulosis is noted without evidence for acute diverticulitis. There is no ascites or lymphadenopathy. No acute fracture or suspicious lesion within the visualized skeletal structures is present. Bladder is mildly distended. Suspected 1.9 cm uterine fibroid. IMPRESSION: 1. No definite acute process within the abdomen or pelvis. 2. Possible subtle stranding adjacent to the gallbladder with mild mucosal enhancement. However, gallbladder not distended and no gallstones identified on ultrasound. Acute cholecystitis is considered unlikely. However, if persistent right upper quadrant pain, a hepatobiliary scan could be considered although evaluation may be difficult given the small size of the gallbladder. 3. No bowel obstruction. No bowel wall thickening. PG Care Time/CCT Total # of Minutes Spent Total Time Spent with Patient: Total time spent is greater than 50% in coordination of care (as documented) at patient's floor/unit and/or counseling patient: Coding Level of Care Code 68525 Inpt Consult Level 2 Diagnoses Right upper quadrant abdominal pain R10.11 Hypertensive urgency I16.0
[2022-05-29] MEDS ORDERED: SINCALIDE IV SCH (14:00)
[2022-05-29] MEDS ORDERED: SODIUM CHLORIDE 0.9% IV SCH (14:00)
[2022-05-29] MEDS: MoRPHine SULFATE 4 MG/ML 1 ML CARP\\VIAL IV PRN (15:34)
[2022-05-29 15:59] LABS: Appearance Urine Clear (Clear); Bilirubin Urine Negative (Negative); Blood Urine Negative (Negative); Color Urine Yellow; Glucose Urine UA Trace (Negative); Ketones Urine Negative (Negative); Leukocyte Esterase Urine Negative (Negative); Nitrite Urine Negative (Negative); Protein Urine Negative (Negative); Specific Gravity Urine 1.034 (1.000-1.030); Urobilinogen Urine Negative (Negative)
--- NOTE | 2022-05-29 16:08 | Nuclear Medicine Report ---
NUCLEAR MEDICINE HEPATOBILIARY SCAN WITH EJECTION FRACTION HISTORY: Right-sided abdominal pain. COMPARISON: Abdominal ultrasound 05/28/2022. TECHNIQUE: Immediately following the intravenous administration of 5.1 mCi Tc-99m Choletec, dynamic a nterior abdominal imaging pre/post 2.5 mcg of Kinevac was performed. FINDINGS: Uniform hepatic tracer accumulation is shown. Prompt intrahepatic biliary excretion is seen. The gall bladder, common bile duct, and small bowel are all visualized by 20 minutes. This appearance represen ts the normal sequence of biliary excretion. The gall bladder ejection fraction following administration of Kinevac was 46% (normal >35%). IMPRESSION: 1. No evidence for cystic duct obstruction. 2. Gallbladder ejection fraction calculated to be 46 %. ACT 112: Negative or not required by law. Electronically signed by: Casey Castaneda M.D. 05/29/2022 4:07 PM
--- NOTE | 2022-05-29 17:41 | Electrocardiogram Report ---
Test Reason : Blood Pressure : / mmHG Vent. Rate : 058 BPM Atrial Rate : 058 BPM P-R Int : 140 ms QRS Dur : 086 ms QT Int : 404 ms P-R-T Axes : 021 -16 059 degrees QTc Int : 396 ms Sinus bradycardia Left ventricular hypertrophy with repolarization abnormality Abnormal ECG When compared with ECG of 06-JUL-2017 11:17, Vent. rate has decreased BY 28 BPM QT has shortened Confirmed by Erik Mcneill ([id number]) on 05/29/2022 5:41:05 PM Referred By: REFERRED SELF Confirmed By:Lyle Mcneill
[2022-05-29] MEDS: ONDANSETRON INJ 2 MG/ML 2 ML VIAL IV PRN (18:16)
[2022-05-29] MEDS: MAGNESIUM SULFATE / D5W 1 GM/100 ML BAG IV SCH ×3 (18:20→22:16)
[2022-05-29] MEDS: KETOROLAC TROMETHAMINE 15 MG/ML VIAL IV PRN (19:30)
[2022-05-29] MEDS: CALCIUM CARBONATE 500 MG CHEWABLE TAB PO SCH (20:31)
[2022-05-29] MEDS: ACETAMINOPHEN 325 MG TAB PO SCH (20:31)
[2022-05-29] MEDS: diazePAM 5 MG TABLET PO SCH (20:31)
[2022-05-29] MEDS: FAMOTIDINE 20 MG TAB PO SCH (20:32)
[2022-05-29] MEDS: DICLOFENAC SOD 1% GEL 100 GM TUBE EXT SCH (20:32)
[2022-05-29] MEDS: LIDOCAINE 5% 1 PATCH TD SCH (20:32)
--- NOTE | 2022-05-29 21:33 | Hospitalist Progress Note ---
Date of Service May 29, 2022 Assessment & Plan (1) Rib pain: Plan: Given the extensive negative work-up, as well as revisiting her HPII suspect she actually has rib pain going on. -Magnesium, calcium, Valium as muscle relaxants -Voltaren gel during the day, lidocaine patch at bedtime -Tylenol [id number], Toradol as needed pain (2) Tension headache: Plan: Above measures for rib spasm will probably help with tension headache as well, continue IV fluids, if does not improve, then can consider OMT for this as well (3) Nausea: Plan: Suspect secondary to pain dehydration, and taking medications when she is not used to it. Pepcid, Zofran as needed (4) Uncontrolled hypertension: Plan: Suspect this is more than likely due to her uncontrolled pain, distress, and anxiety about the situation. Follow. Nothing about this appears consistent with a hypertensive urgency. Of note the headache does not have blurred vision or confusion accompanying it, making it far more likely that the headache is provoking the pressure, not the other way around. (5) Lower extremity edema: Plan: Appears most consistent with venous stasis. Given that she has asymmetric tendernesscheck venous Dopplers rule out DVT (6) DVT prophylaxis: Plan: Lovenox (7) Somatic dysfunction of rib: Plan: OMT as above Admission and Anticipated Discharge Date Admission Date: May 28, 2022 Subjective Given negative work-up thus far, revisited HPI. Right-sided painbut whenever she points its really in her mid to lower rib cage not her abdomen. She notes that it starts at random and feels very gripping or at times stabbing. Definitely is not a clear-cut relationship to eating. She does have a little bit of nausea now but that does not seem to really correlate with the right- sided pain. Notes also a headache. No cough no shortness of breath. Bilateral lower extremity edema in the last few days, right calf hurts. Notes that she gets periodic cellulitis, but she has no redness of her skin. No other new complaints. Review of Systems Review of Systems: All systems reviewed & are unremarkable except as noted in HPI & below Physical Exam Physical Exam: In general she is awake alert oriented pleasant no distress. HEENT normocephalic atraumatic mucous membranes moist. Suboccipitals are high tone tender decreased range of motion. Right-sided rib cage is very reproducibl e tenderness, decreased range of motionbalanced ligamentous tensiontissue texture improved some, patient did notice exacerbation of symptoms during OMT. Abdomen shows mild epigastric discomfort, does not reproduce her pain. Bilateral lower extremities show about 1+ edema equal bilaterally but her right calf is quite tender. No erythema. Results & Data Results & Data ([facility]) Vital Signs (Past 12 Hours) Vital Signs Temp Pulse Resp BP Pulse Ox O2 Del Method 05/29/22 19:00 97.5 F L 59 L 20 166/95 H 95 Room Air 05/29/22 17:01 97.9 F 64 19 184/102 H 94 Room Air 05/29/22 11:22 98.2 F 54 L 19 153/89 H 97 Room Air PG Care Time/CCT Total # of Minutes Spent Total Time Spent with Patient: Total time spent is greater than 50% in coordination of care (as documented) at patient's floor/unit and/or counseling patient: Coding Level of Care Code 57685 Subseq Hosp Care Lvl 3 Diagnoses Rib pain R07.81 Tension headache G44.209 Nausea R11.0 Uncontrolled hypertension I10 Lower extremity edema R60.0 DVT prophylaxis Z29.9 Somatic dysfunction of rib M99.08 CPT Codes Musculoskeletal - Musculoskeletal: 52486 [address] Homer Tr 1-2 Body regions ([id number])
[2022-05-29] MEDS ORDERED: LACTATED RINGER'S 1,000 ML IV SCH (21:45)
--- NOTE | 2022-05-29 22:44 | Billing Data ---
Date of Service May 29, 2022 Coding Level of Care Code 46500 Initial Inpt Care Lvl 3
[2022-05-30] MEDS: MAGNESIUM SULFATE / D5W 1 GM/100 ML BAG IV SCH (00:22)
[2022-05-30] MEDS: KETOROLAC TROMETHAMINE 15 MG/ML VIAL IV PRN ×2 (06:21→17:49)
--- NOTE | 2022-05-30 07:44 | Surgery Progress Note ---
Date of Service May 30, 2022 Assessment & Plan (1) Somatic dysfunction of rib: Plan: HIDA scan was normal with normal ejection fraction Appears nausea has resolved No indication for surgical intervention Follow-up as needed Admission and Anticipated Discharge Date Admission Date: May 29, 2022 Subjective 61-year-old female admitted with hypertensive urgency and right upper quadrant pain. This pain is not postprandial, it occurs intermittently, and appears to be more positional. No associated symptoms. Prior open appendectomy. Patient's HIDA scan was essentially normal with an open duct and normal ejection fraction Suspected musculoskeletal pain Review of Systems Constitutional: no fever and no chills Eyes: + corrective lenses; no eye pain Ear, Nose, Mouth, Throat: no ear pain Respiratory: no cough and no dyspnea Cardiovascular: as per Subjective / HPI and + chest pain Gastrointestinal: no vomiting and no diarrhea/loose stools Genitourinary: no dysuria Musculoskeletal: no back pain Integumentary: no rash Neurologic: no localized weakness Results & Data ([facility]) Vital Signs (Past 12 Hours) Vital Signs Temp Pulse Pulse Resp BP Pulse Ox O2 Del Method 05/30/22 07:23 52 L 05/30/22 03:50 36.4 C L 63 20 135/88 93 Room Air 05/30/22 03:27 54 L 05/29/22 22:00 36.7 C 54 L 20 166/92 H 95 Room Air PG Care Time/CCT Total # of Minutes Spent Total Time Spent with Patient: Total time spent is greater than 50% in coordination of care (as documented) at patient's floor/unit and/or counseling patient: Coding Level of Care Code 20979 Inpt Consult Level 3 Diagnoses Somatic dysfunction of rib M99.08
[2022-05-30 07:56] LABS: Creatinine Clr Calc Pharmacy 127.2 ml/min; Est GFR (Non-African American) 98.4 ml/min; Magnesium 2.5 mg/dl (1.7-2.4)
--- NOTE | 2022-05-30 08:41 | Ultrasound Report ---
BILATERAL LOWER EXTREMITY VENOUS DOPPLER CLINICAL HISTORY: new edema, R calf tenderness, ?DVT COMPARISON STUDY: Left lower extremity venous Doppler ultrasound February 13, 2017. TECHNIQUE: Sonography of the deep venous system of the bilateral lower extremities was performed. Co mpression and augmentation were evaluated. FINDINGS: The bilateral common femoral, superficial femoral and popliteal veins were compressible. A ugmentation was normal. Flow was shown within the deep calf vessels. IMPRESSION: No evidence of deep venous thrombus within the bilateral lower extremities. ACT 112: Negative or not required by law. Electronically signed by: Nino Mcneil M.D. 05/30/2022 8:39 AM
[2022-05-30] MEDS: ACETAMINOPHEN 325 MG TAB PO SCH ×3 (08:56→20:14)
[2022-05-30] MEDS: DICLOFENAC SOD 1% GEL 100 GM TUBE EXT SCH ×4 (08:57→20:15)
[2022-05-30] MEDS: ENOXAPARIN INJ 40 MG/0.4 ML SYR SQ SCH (08:58)
[2022-05-30] MEDS: FAMOTIDINE 20 MG TAB PO SCH ×2 (08:58→21:01)
[2022-05-30] MEDS: MoRPHine SULFATE 4 MG/ML 1 ML CARP\\VIAL IV PRN (09:04)
[2022-05-30] MEDS: ONDANSETRON INJ 2 MG/ML 2 ML VIAL IV PRN ×2 (09:04→17:49)
[2022-05-30] MEDS: POTASSIUM CHLORIDE CRTAB 20 MEQ TABCR PO SCH (09:09)
[2022-05-30 10:59] LABS: Basophils # (auto) 0.03 K/uL (0-0.2); Basophils % (auto) 0.6 %; Eosinophils # (auto) 0.16 K/uL (0-0.50); Eosinophils % (auto) 3.2 %; Hematocrit (blood only) 34.5 % (34.1-44.9); Hemoglobin 11.2 g/dl (12.0-16.0); Immature Granulocytes # (auto) 0.05 K/uL (0.00-0.02); Lymphocytes # (auto) 1.59 K/uL (1.2-3.4); Lymphocytes % (auto) 31.9 %; Mean Corpuscular Hemoglobin 30.9 pg (25.0-34.0); Mean Corpuscular Hgb Conc 32.5 g/dL (32.0-36.0); Mean Corpuscular Volume 95.3 fL (80.0-100.0); Mean Platelet Volume 11.6 fL (9.4-12.3); Monocytes # (auto) 0.48 K/uL (0.24-0.82); Monocytes % (auto) 9.6 %; Neutrophils # (auto) 2.68 K/uL (1.4-6.5); Neutrophils % (auto) 53.7 %; Platelet Count 218 K/uL (130-400); RDW Coefficient of Variation 13.1 % (11.5-14.5); RDW Standard Deviation 45.2 fL (36.4-46.3); Red Blood Count 3.62 M/uL (3.93-5.22); White Blood Count 4.99 K/ul (4.8-10.8)
[2022-05-30 11:24] LABS: Albumin Globulin Ratio 1.6 (0.9-2); Albumin Level 3.8 gm/dl (3.4-5.0); BUN Creatinine Ratio 13.8 (10-20); Bilirubin,Total 0.3 mg/dl (0.2-1.0); Calcium 8.5 mg/dl (8.5-10.1); Creatinine Clr Calc Pharmacy 117.4 ml/min; Est GFR (African American) 111.1 ml/min; Est GFR (Non-African American) 95.8 ml/min; Globulin 2.4 gm/dl (2.5-4.0); Potassium 4.1 mmol/L (3.5-5.1); Total Protein 6.2 gm/dl (6.0-8.3)
[2022-05-30 12:00] LABS: Lyme Ab IgG w/WB Rflx Negative (Negative); Lyme Ab IgM w/WB Rflx Negative (Negative)
--- NOTE | 2022-05-30 18:18 | Hospitalist Progress Note ---
Date of Service May 30, 2022 Assessment & Plan (1) Rib pain: Plan: Quite extensive work-up negative for other pathology, and history and exam quite consistent with rib dysfunction -Magnesium, calcium, Valium as muscle relaxants -Voltaren gel during the day, lidocaine patch at bedtime -Tylenol [id number]-osbri, Toradol as needed pain -Pain improvingonce she no longer needs as needed morphinehopefully will be to get home (2) Tension headache: Plan: Above measures for rib spasm will probably help with tension headache as well, continue IV fluids, if does not improve, and did OMT for this as well (3) Nausea: Plan: Suspect secondary to pain dehydration, and taking medications when she is not used to it. Improved (4) Uncontrolled hypertension: Plan: Suspect this is more than likely due to her uncontrolled pain, distress, and anxiety about the situation. Follow. Nothing about this appears consistent with a hypertensive urgency. Of note the headache does not have blurred vision or confusion accompanying it, making it far more likely that the headache is provoking the pressure, not the other way around. I did discuss with the patient though, that given how persistent her blood pressure is up she may have essential hypertension and not nocertainly this would not be the right time/place/setting to make such a diagnosis given that she is in the hospital, and pain, etc.but did recommend that she get a blood pressure cuff to follow at home. (5) Lower extremity edema: Plan: Appears most consistent with venous stasis. Venous Dopplers negative. Encouraged activity/ambulation. (6) DVT prophylaxis: Plan: Lovenox (7) Somatic dysfunction of rib: Plan: OMT as above, also OMT done for somatic dysfunction cervical region (8) Morbid obesity: Plan: BMI 49.2, secondary problem likely osteoarthritis. Extensive discussion on weight lossutilizing Thermo dynamics and "the value of the calorie" to help shed some light on her struggles. Plan Time in approximately noon, time out approximately 12:45 PM. Greater than 30 minutes [id number] counseling educating etc.certainly greater than 30 minutes separate from OMT time. Admission and Anticipated Discharge Date Admission Date: May 29, 2022 Subjective Ongoing headache. Rib pain ongoing off and on but better. Nausea seems to be gone. Swelling about the same. Blood pressure still up. Notes that pain control is overall better, but notes that she definitely does need the medications. Also incidentally notes that she has a really hard time losing any weight. Review of Systems Review of Systems: All systems reviewed & are unremarkable except as noted in HPI & below Physical Exam Physical Exam: In general she is awake and alert pleasant no distress. HEENT normocephalic atraumatic mucous membranes moist. Breathing unlabored no accessory muscle use good effort. Osteopathic/musculoskeletal shows a right- sided rib cage musculature to be high tone, tender, decreased range of motionbalanced ligamentous tensionpatient tolerated well. Also shows her right greater than left suboccipital musculature to be high tone, tender, decreased range of motioninhibitory pressureimproved. Patient tolerated well. Bilateral lower extremity edema about the same. Results & Data Results & Data ([facility]) Vital Signs (Past 12 Hours) Vital Signs Temp Pulse Pulse Pulse Resp BP Pulse Ox 05/30/22 15:57 97.7 F 58 L 18 146/91 H 96 05/30/22 10:41 05/30/22 10:36 98.2 F 56 L 20 173/100 H 96 05/30/22 09:00 56 L 18 156/87 H 96 05/30/22 07:49 97.7 F 59 L 20 181/98 H 96 05/30/22 07:23 52 L O2 Del Method 05/30/22 15:57 05/30/22 10:41 Room Air 05/30/22 10:36 Room Air 05/30/22 09:00 Room Air 05/30/22 07:49 Room Air 05/30/22 07:23 PG Care Time/CCT Total # of Minutes Spent Total Time Spent with Patient: Total time spent is greater than 50% in coordination of care (as documented) at patient's floor/unit and/or counseling patient: Coding Level of Care Code 78820 Subseq Hosp Care Lvl 3 Diagnoses Rib pain R07.81 Tension headache G44.209 Nausea R11.0 Uncontrolled hypertension I10 Lower extremity edema R60.0 DVT prophylaxis Z29.9 Somatic dysfunction of rib M99.08 Morbid obesity E66.01 CPT Codes Musculoskeletal - Musculoskeletal: 28559 Osteo Homer Tr 1-2 Body regions ([id number])
--- NOTE | 2022-05-30 18:18 | Billing Data ---
Date of Service May 30, 2022 Coding Level of Care Code 99720 Prolonged Care (int'l)
[2022-05-30] MEDS: CALCIUM CARBONATE 500 MG CHEWABLE TAB PO SCH (20:14)
[2022-05-30] MEDS: LIDOCAINE 5% 1 PATCH TD SCH (20:15)
[2022-05-30] MEDS: diazePAM 5 MG TABLET PO SCH (20:19)
[2022-05-31] MEDS: ENOXAPARIN INJ 40 MG/0.4 ML SYR SQ SCH (08:17)
[2022-05-31] MEDS: FAMOTIDINE 20 MG TAB PO SCH (08:17)
[2022-05-31] MEDS: ACETAMINOPHEN 325 MG TAB PO SCH (08:17)
[2022-05-31] MEDS: DICLOFENAC SOD 1% GEL 100 GM TUBE EXT SCH (08:18)
[2022-05-31] MEDS: ONDANSETRON INJ 2 MG/ML 2 ML VIAL IV PRN (08:22)
[2022-05-31] MEDS: KETOROLAC TROMETHAMINE 15 MG/ML VIAL IV PRN (08:22)
[2022-05-31] MEDS: POTASSIUM CHLORIDE CRTAB 20 MEQ TABCR PO SCH (08:22)
--- NOTE | 2022-05-31 16:09 | Billing Data ---
Date of Service May 31, 2022 Coding Level of Care Code D/C DAY MANAGEMENT <30 MINS
--- NOTE | 2022-05-31 16:09 | Discharge Summary ---
Date of Service May 31, 2022 Admission HPI Per Admitting Provider Sarah is a 61 year old woman who presented to the ED with severe colicky RUQ pain x5 days. She is concerned that her gallbladder may be involved. At symptom onset, she was able to continue working through each episode, which lasted 2 minutes at a time. She reports the pain never fully subsided between episodes from onset to ER presentation (constant dull knotty ache). Her symptoms continued to progressively worsen until last night, when she had multiple episodes of 10/10 pain in the RUQ that repeatedly brought her to her knees. She also broke out in cold sweats, which had never happened before. She has had similarly knotty, right-sided subcostal pain before but this was the worst it had ever been. Like the initial episodes, each one lasted about 2 minutes at a time, with radiation to the back. ROS + nausea, and SOB due to abdominal pain. She denies fever, dizziness, vomiting, or change in bowel habits. ED course was notable for BP of 229/123, sinus tachycardia (100s) on EKG, nonspecific gallbladder findings on ultrasound/CT, and mild guarding without rebound or rigidity on exam. She received Zofran, labetalol, IV Dilaudid, and Mg repletion. General surgery was consulted for evaluation of acute abdomen. They recommended admission overnight for HIDA scan in the morning for diagnostic clarity. Her primary senior care is [facility]. She has no chronic medical conditions and has no prescribed medications. She reports that she undergoes yearly screenings for hypertension, high cholesterol and hyperglycemia. She is a never smoker. She has a remote surgical history of appendectomy. Otherwise, she has no abdominal surgeries. Principal Diagnosis Rib related pain. See below otherwise. Discharge Exam In general she is awake and alert pleasant no distress. HEENT normocephalic atraumatic mucous membranes moist. Breathing unlabored no accessory muscle use good effort. Skin shows no rashes no pallor or icterus. Neuro without focal deficits. Discharge Data Allergies Allergy/AdvReac Type Severity Reaction Status Date / Time Penicillins Allergy Unknown Verified 02/13/17 11:42 Sulfa (Sulfonamide Allergy Unknown Verified 07/06/17 13:11 Antibiotics) sulfamethoxazole Allergy Unknown Verified 07/06/17 13:11 aspirin AdvReac Unknown GI UPSET Unverified 07/06/17 13:11 Consultations 05/28/22 20:20 Consult General Surgery Stat 05/28/22 20:45 ED Decision to Admit Stat Ordered Studies 05/28/22 17:04 US gallbladder Stat 05/28/22 18:32 CT abd pelvis IV con only Stat CT angio chest PE protocol Stat 05/29/22 19:52 US venous doppler [facility] Urgent Hospital Course (1) Rib pain: Quite extensive work-up negative for other pathology, and history and exam quite consistent with rib dysfunction -Tylenol/ibuprofen yvwkoq-[id number], Voltaren gel 4 times daily scheduled, lidocaine patch at bedtime -Valium at bedtime for the next few nights -Outpatient OMT (2) Tension headache: Above measures for rib spasm will probably help with tension headache as well, outpatient OMT (3) Nausea: Suspect this was secondary to pain dehydration, and taking medications when she is not used to it. Improved (4) Uncontrolled hypertension: Suspect this is more than likely due to her uncontrolled pain, distress, and anxiety about the situation. Follow. Nothing about this appears consistent with a hypertensive urgency. Of note the headache does not have blurred vision or confusion accompanying it, making it far more likely that the headache is provoking the pressure, not the other way around. I did discuss with the patient though, that given how persistent her blood pressure is up she may have essential hypertension and not nocertainly this would not be the right time/place/setting to make such a diagnosis given that she is in the hospital, and pain, etc.but did recommend that she get a blood pressure cuff to follow at home. (5) Lower extremity edema: Appears most consistent with venous stasis. Venous Dopplers negative. Encouraged activity/ambulation. Improved some with the same (6) DVT prophylaxis: Lovenox (7) Somatic dysfunction of rib: OMT done during her hospital stay, probably would benefit from ongoing OMT as an outpatient (8) Morbid obesity: BMI 49.2, secondary problem likely osteoarthritis. Extensive discussion on weight lossutilizing Thermo dynamics and "the value of the calorie" to help shed some light on her struggles. Plan Stable for home, outpatient follow-up Total Time Total Time Spent Total Time Spent (In Minutes): Less than 30 Discharge Plan Discharge Items Patient Disposition: Home - Self-Care Reason For Visit: SEVERE RUQ PAIN Discharge Diagnosis: Rib muscle spasm Activity: Resume your previous activity Non-emergency contact: Primary Care Provider Call non-emergency contact if: you have any medication questions Follow-up/Referrals: PCP,NO [Primary Care Provider] - Diet: Regular Addtl Attending Provider Instructions: Rib muscle spasm -Both because of what the symptoms look like, as well as an extensive work-up ruling out many, many other possible diagnoses: The pain really does appear to be red muscle spasm. This can certainly hurt quite a bit, because ribs are flat/strap like muscles it can come on for no good reason, and because her ribs are constantly moving when we breathe it does tend to hurt a lot. ----I definitely recommend ongoing OMT. [facility] would be good to continue with working on the rib muscles. They would also be other continue to work on the tension headache. ----Continue the Voltaren gel (topical diclofenac) 4 times a dayright over the area that hurtsit would be best to do it 4 times a day routinely until the pain resolves. Typically Voltaren gel works better when you use it more routinely. ----At bedtime continue a lidocaine patch right over the area (or as an alternate the patches you showed me that you get on [employer]) --------> once the pain has improved you can stop both the lidocaine patches and Voltaren gel ----For the next week, it would be okay to continue to stay on top of things with medications: Tylenol 3 times a day (650 mgTylenol arthritis), and ibuprofen 600 mg 3 times a day (3 nivt-ypr-qggfcgn ibuprofen). For a week its very unlikely that this regimen will causing much trouble. If you were to start to get an upset stomach, I would definitely have you stop the ibuprofen. It is pretty rare, however, for somebody to get an upset stomach with only a week of ibuprofen. ----For the next few nights, we will also have you still take the Valium at bedtime. Note that this can make you quite groggy. This medicine will definitely need to be short-lived, as medications like Valium, while a very potent muscle relaxant, can also definitely lead to a lot of side effects, or even physical dependency, if used for more than even a few weeks, and an unlucky person. Headaches -These appear to be tension headaches at the suboccipital muscles. The above medication plan will likely continue to help with this 2. Using an ice pack right of the back your neck can be helpful. When you follow-up in the office for OMT, having him continue to work on your suboccipital muscles will help as well. Elevated blood pressure -As we have been discussing all along, it is exceedingly common for someone's blood pressure to run high when they are in the hospital (to the point that there is good science to say that "treating the number" when somebody is in the hospital for non-Blood pressure related reasons actually causes more harm than good). That said, if you are consistently running high, we would obviously want to treat to prevent long-term complications from high blood pressure. To that end, I would definitely recommend that you monitor your blood pressure at homeideally randomly and 2-3 times a day for the next week or so. That will give us a "loss of averages" for what you are running right now. Given that your ribs are still hurting, if you are still running high at home, I would repeat the gathering of data/loss of averages another week when you are feeling goodand then from there you/your family doc can see if you truly do run high. Like we have been discussing, right now is not the right time to really diagnose you with high blood pressure due to pain/stress/hospitalization. Also as we discussed, there is a lot of "myth and Urban Legend" regarding the "time bomb" affect of an elevated blood pressure reading. As we discussed, a true hypertensive crisis is fairly rare, generally "the door is not open" for that to occur until somebody is at least 200/100, and usually the accompanying symptoms are things like a headache with blurred vision and confusion, or chest pain/shortness of breath. The numbers in the range you have been reading, if they are actually your baseline (and do not improve once you are home/out of pain/etc., are numbers that we would want to get in line quicklybut really more to prevent vascular damage over the next year or 5not to prevent a "time bomb from going off". Swelling -The swelling really fits with "venous stasis"and got worse because his IV fluids do tend to leak out into the surrounding tissue. With movement and compression, I expect this to improve over the next week or so. Staying low sodium intake will helpsodium does tend to make her kidneys retain fluid. Weight loss -As we discussed, because you are very active you fortunately do not appear to have much as far as health problems (some arthritis, possibly the blood pressure), but since it was something that was bothering youremember that it can be somewhat simplified (to a degree over simplified but it is helpful) looking at weight loss through "the loss of physics"basically there is about 3500 francisco in a pound, and when we did the mass on you for age/height/weight, you burn about 1800 francisco a day. Remember to, most of us tend to underestimate how many calories are in foods that we eat (as a thought exerciselook at labels and serving sizes to get a feel for how many calories are in some of the things you commonly eat), and we tend to overestimate how much calories we burn with movement (remember that its only about 100 francisco per mile that you burn off). From there, basically you are trying to "spend more than you are not"i.e. trying to burn off more calories than you take) with your "base" of 1800+ what ever you brought off with exercise, balanced off of the amount of calories you taken). Most of the time when people struggle it is generally just because they do not have a firm understanding of the value of a calorie (both in terms of intake and burning things off). Pending Studies at Discharge: No Stand-Alone Forms: My [facility], Smoking Cessation Medications and DC Order Prescriptions: New diazepam 5 mg Tablet 5 mg PO HS Qty: 5 0RF diazepam [Valium] 5 mg tablet 5 mg PO HS PRN (Reason: muscle spasm) Qty: 5 0RF Discharge Orders: Discharge Order (Routine); Ordered 05/31/22 Ordered By: Anurag Damon/Other Patient Handouts: Medicine for Pain, ED Leg Swelling in Both Legs Admission Data Admit Date/Time: 05/29/22 21:30 Attending Provider: Anurag Gonzalez Admit Provider: Bridger Rivera Primary Care Provider: PCP,NO Other Providers: Sumanth Mora ; Elias Rodríguez Other Interventions: Discharge Summary Assessment (RN) Last Done: 05/31/22 09:51 Coding Level of Care Code D/C DAY MANAGEMENT <30 MINS Diagnoses Rib pain R07.81 Tension headache G44.209 Nausea R11.0 Uncontrolled hypertension I10 Lower extremity edema R60.0 DVT prophylaxis Z29.9 Somatic dysfunction of rib M99.08 Morbid obesity E66.01
== END 2022-05-31 10:48 | disposition home or self-care (01) | DRG 204 ==
LOC: ED 16:34 → EDINP 16:34 → SUATTDRO 22:18 → 2W 05-29 01:04